=== PATIENT | female | born 1935 | race Caucasian/White ===

== ENCOUNTER 2016-08-12 17:12 | Inpatient (IN) ==
[2016-08-12] MEDS ORDERED: Naloxone 0.4 MG/ML INJ IVP PRN (19:50)
[2016-08-12] MEDS ORDERED: Dextrose Gel 15 GM PO PRN ×2 (19:57)
[2016-08-12] MEDS ORDERED: *HR* Dextrose 50 % in Water (Syg) 50 ML SYRINGE IVP PRN (19:57)
[2016-08-12] MEDS ORDERED: D5% in Water 1,000 ML IVC PRN (19:57)
--- NOTE | 2016-08-12 20:05 | Internal Med History&Physical ---
<Opal Garcia - Last Filed: 08/13/16 00:35> Date of Encounter: 08/12/16 Time of Encounter: 19:59 Assessment and Plan (1) Ascites Current visit: No Status: Acute due to cirrhosis. Patient with increasing swelling, increased weight, early satiety, nausea, difficulty walking due to swelling in her legs. continue home doses of lasix and amiloride. Low sodium diet. Albumin Q6hr x 24hr. Plan for paracentesis. Follow up with Dr. Sharma as an outpatient. Qualifiers: Ascites type: other type Qualified Code(s): R18.8 - Other ascites (2) DM2 (diabetes mellitus, type 2) Current visit: No Status: Acute check Hgb A1c Cardiac, ADA diet Check blood sugars ACHS Levemir 14u HS Sliding scale ACHS hypoglycemic protocol. Qualifiers: Diabetes mellitus complication status: with kidney complications Diabetes mellitus complication detail: with chronic kidney disease Diabetes mellitus fpc insulin use: without fpc use Chronic kidney disease stage: stage 3 (moderate) Qualified Code(s): E11.22 - Type 2 diabetes mellitus with diabetic chronic kidney disease; N18.3 - Chronic kidney disease, stage 3 ( moderate) (3) PEREZ (nonalcoholic steatohepatitis) Current visit: No Status: Acute Patient with PEREZ cirrhosis, with significant ascites. Plan for paracentesis to relieve ascites. Follow up with Dr. Sharma as an outpatient. (4) DVT prophylaxis Current visit: No Status: Acute anti-embolic stockings Internal Medicine - H&P: HPI Chief complaint: ascites Admitted From: Hospital to Hospital Transfer Plans for Post Hospital Care: Home History of present illness: Ms. Diego is a 81 year old female with hypertension, hyperlipidemia, atrial fibrillation, asthma, type 2 diabetes, cirrhosis presented to [facility] emergency department with increased swelling in lower extremities as well as abdomen. Patient reports she is unable to walk due to the significant swelling. She has gained 10 pounds in weight over the last week or so. She has generalized weakness, headache, cough, nausea, early satiety. She denies any lightheadedness, palpitations, chest pain, fever, chills, sweats, body aches. Evaluation in the emergency department at [facility] included a CT of her abdomen which showed large amount of ascites which is increased in amount since 08/01/2016, severe cirrhotic changes of the liver, small varices in the upper abdomen, severe sigmoid diverticulosis without evidence diverticulitis. LFTs were elevated consistent with her disease. She was transferred to [facility] for paracentesis and further management. ON exam, patient is alert and oriented in no acute distress. Lungs are clear bilaterally, heart has regular rate and rhythm. Abdomen is distended, diffusely tender. Bilateral lower extremities have +[address] up her thighs. Past Med Surg Social Fam HX - Past Medical History Medical history: asthma, cirrhosis, DVT, diabetes, GERD, hyperlipidemia, hypertension, renal disease, other Psychiatric history: anxiety - Past Surgical History Surgical History: breast surgery, cholecystectomy, hysterectomy, orthopedic, other, pacemaker/AICD, other - Social History Smoking Status: Former smoker Smokeless Tobacco Status: No Alcohol use: none Drug use: none - Family History Mother Living Status: Hx Family Cardiac Disorders: No Hx Family Respiratory Disorders: Yes Hx Family Cancer: Yes (ovarian) Hx Family GI Disorders: Yes Hx Family Endocrine Disorder: Yes Hx Family Neuromuscular Disorders: No Hx Family Neurologic Disorders: No Hx Family HEENT Disorders: No Hx Family Autoimmune Disorders: No Father Living Status: Hx Family Cardiac Disorders: Yes (htn, cad) Hx Family Endocrine Disorder: Yes (dm) Brother Hx Family Cardiac Disorders: Yes (htn) Hx Family Cancer: Yes (lung) Sister Living Status: Hx Family Cardiac Disorders: Yes (htn) Hx Family Cancer: Yes (breast) Hx Family Endocrine Disorder: Yes (dm) Paternal Grandmother Hx Family Cancer: Yes (breast) Daughter Hx Family Respiratory Disorders: Yes (copd) Son Hx Family Cardiac Disorders: Yes (chf) Hx Family Neuromuscular Disorders: Yes (gout) Internal Medicine - H&P: Meds Aspirin 325 mg PO DAILY 11/03/14 [History] Atorvastatin [Lipitor] 40 mg PO DAILY 11/03/14 [History] Furosemide [Lasix] 80 mg PO BID 11/03/14 [History] Levothyroxine [Synthroid] 75 mcg PO DAILY 11/03/14 [History] Loratadine [Claritin] 10 mg PO DAILY 11/03/14 [History] Metoprolol Tartrate 50 mg PO BID 11/03/14 [History] Rifaximin [Xifaxan] 550 mg PO BID 11/03/14 [History] Sertraline [Zoloft] 25 mg PO DAILY 11/03/14 [History] Cholecalciferol (Vitamin D3) [Vitamin D3] 50,000 unit PO SA 12/27/15 [History] cloNIDine HCl [CloNIDine HCl] 0.1 mg PO DAILY #30 tablet 12/31/15 [Rx] Insulin DETEMIR [Levemir] 28 unit SQ HS 03/05/16 [History] Insulin ASPART [NovoLOG] 10 unit SQ TIDWM 04/18/16 [History] aMILoride [Midamor] 5 mg PO BID 04/18/16 [History] Cholestyramine 2 - 4 gm PO BID 06/27/16 [History] Eplerenone [Inspra] 25 mg PO DAILY 08/12/16 [History] Spironolactone [Aldactone] 100 mg PO BID 08/12/16 [History] Ursodiol [Lo Forte] 500 mg PO BID 08/12/16 [History] Allergies apixaban [From Eliquis] Allergy (Verified 08/12/16 15:00) Redness of Skin Buspirone [From BuSpar] Allergy (Verified 08/12/16 15:00) Headache codeine Allergy (Verified 08/12/16 15:00) Headache lactulose Allergy (Verified 08/12/16 15:00) Itching rivaroxaban [From Xarelto] Allergy (Verified 08/12/16 15:00) Rash Sulfa (Sulfonamide Antibiotics) Allergy (Verified 08/12/16 15:00) Rash sulfamethoxazole Allergy (Verified 08/12/16 15:00) Headache Warfarin [From Coumadin] Allergy (Verified 08/12/16 15:00) Rash All Systems PM: A 10-system review of systems was performed and is negative for pertinent findings except as documented above in the HPI. - Constitutional Constitutional: weakness, no chills, no fever(s), no night sweats - EENT Eyes: no change in vision, no discharge, no pain, no photophobia Ears: no ear discharge, no ear pain, no tinnitus Nose, mouth and throat: no dysphagia, no nasal discharge, no neck pain, no sore throat - Cardiovascular Cardiovascular ROS IM: dyspnea, edema, no chest pain, no diaphoresis, no lightheadedness, no palpitations, no syncope - Respiratory Respiratory: cough, dyspnea, no wheezing, no excessive phlegm production - Gastrointestinal Gastrointestinal: abdominal pain, no diarrhea, no hematemesis, no hematochezia, no melena, no nausea, no vomiting - Genitourinary Genitourinary: no change in urinary stream, no dysuria, no flank pain, no hematuria - Musculoskeletal Musculoskeletal ROS IM: no numbness, no tingling - Integumentary Integumentary IM: no rash, no unusual bruising - Neurological Neurological ROS: no confusion, no convulsions, no focal weakness, no numbness, no tingling, no tremor(s) - Hematologic/Lymphatic Hematologic/Lymphatic: no easy bruising - Constitutional Vitals: Temp Pulse Resp BP Pulse Ox 98.2 F 72 14 119/77 99 08/12/16 19:28 08/12/16 19:28 08/12/16 19:28 08/12/16 19:28 08/12/16 19:28 General appearance: Present: A&O X 3, pleasant, no acute distress - Head Head exam: Present: atraumatic, normocephalic - Eye Eye exam: Present: PERRL, conjuntiva pink, sclera anicteric Pupils: Present: PERRL - Neck Neck exam general surgery: Present: supple, trachea midline. Absent: lymphadenopathy - Respiratory Respiratory exam: Present: CTAB. Absent: accessory muscle use, rales, rhonchi, wheezes - Cardiovascular Cardiovascular exam: Present: RRR, +S1, +S2. Absent: diastolic murmur, gallop, rubs, systolic murmur - GI/Abdominal GI/Abdominal exam: Present: distended, normal bowel sounds, soft, tenderness, no peritoneal signs - Extremities Exam Extremities exam: Present: pedal edema, warm, radial pulses palpable and symetrical. Absent: calf tenderness, cyanotic - Neurological Exam Neurological exam: Present: CN II-XII intact, oriented X3, no focal deficits. Absent: pronater drift, facial droop, speech deficit - Skin Skin exam: Present: dry, intact Internal Med - H&P Results - Labs Labs: Labs from [facility] ER: Hgb 12.3 Hct 36.7 WBC 10.4 Plt 130 Na 136 K 4.3 Cl 106 Co2 21 BUN 24 Cr 0.88 Glu 81 BNP 125 Tbili 1.9 Dbili 1.3 AST 403 ALT 329 Alk phos 192 <Floyd Montalvo - Last Filed: 08/13/16 00:46> Date of Encounter: 08/12/16 Internal Medicine - H&P: HPI History of present illness: Ms. Diego is a 81 year old female All Systems PM: A 10-system review of systems was performed and is negative for pertinent findings except as documented above in the HPI. - Constitutional Vitals: Temp Pulse Resp BP Pulse Ox 98.2 F 72 14 119/77 99 08/12/16 19:28 08/12/16 19:28 08/12/16 19:28 08/12/16 19:28 08/12/16 19:28 - Attending Attestation I personally interviewed and examined this patient and my medical decision- making was reviewed with the Advanced Practice Nurse. I agree with the documented findings, disposition and treatment plan as described. Pt with cirrhosis from PEREZ with no prior paracentesis comes in as a referral for symptomatic ascites but on exam pt looks comfortable, we will do a trial of IV albumin and reassess the need for paracentesis in AM. Should she still be comfortable then she will benefit from outpatient GI followup rather than inpatient paracentesis or GI consult.
[2016-08-12 20:36] LABS: Hemoglobin A1C 5.6 %
[2016-08-12] MEDS ORDERED: Insulin LISPRO 300 UNITS/3 ML VIAL SQ SCH (21:00)
[2016-08-12] MEDS ORDERED: Insulin DETEMIR 100 UNIT/ML X5UNITS SQ SCH (21:00)
[2016-08-13] MEDS: Albumin 25% 25gram/100mL 25 GM/100 ML IV.SOLN IVPB SCH ×6 (02:17→18:34)
[2016-08-13 05:40] LABS: Basophils # 0.1 K/mcL (0.0-0.2); Basophils % 0.6 %; Eosinophils # 0.5 K/mcL (0.0-0.6); Eosinophils % 5.2 %; Hematocrit 33.3 % (35.3-44.9); Immature Granulocytes % 0.3 % (0-4); Lymphocytes # 2.1 K/mcL (0.6-4.6); Lymphocytes % 23.9 %; Mean Corpuscular Hemoglobin 31.9 pg (28.0-33.3); Mean Corpuscular Volume 96.5 fL (83.0-100.0); Mean Platelet Volume 11.4 fL (9.4-12.4); Monocytes # 0.8 K/mcL (0.0-1.3); Monocytes % 9.2 %; Neutrophils # 5.3 K/mcL (1.6-8.9); Platelet Count 116 K/mcL (140-400); Red Blood Count 3.45 M/mcL (3.82-4.97); Red Cell Distribution Width 14.6 % (11.5-14.5); Segmented Neutrophils % 60.8 %
[2016-08-13 05:49] LABS: INR 1.7; Prothrombin Time 18.5 Seconds (9.4-12.1)
[2016-08-13 05:52] LABS: Activated Partial Thrombo Time 30.2 Seconds (26.0-36.0)
[2016-08-13 05:58] LABS: Alanine Aminotransferase 270 Units/L (0-55); Albumin 2.4 g/dL (3.5-5.0); Albumin/Globulin Ratio 0.7 (1.1-2.2); Alkaline Phosphatase 163 Units/L (38-126); Aspartate Amino Transferase 345 Units/L (5-34); BUN/Creatinine Ratio 30 (6-26); Bilirubin,Direct 1.3 mg/dL (0.0-0.5); Bilirubin,Indirect 0.9 mg/dL (0.0-1.2); Bilirubin,Total 2.2 mg/dL (0.2-1.2); Blood Urea Nitrogen 26 mg/dL (7-20); Calcium 8.6 mg/dL (8.6-10.8); Carbon Dioxide 24 mEq/L (19-29); Chloride 105 mEq/L (98-109); Globulin 3.3 g/dL (2.4-3.5); Glucose 78 mg/dL (70-99); Osmolality,Calculated 286 (280-300); Potassium 4.2 mEq/L (3.5-4.5); Sodium 136 mEq/L (136-145); Total Protein 5.7 g/dL (6.0-8.3); eGFR For African Americans > 60 (> 60); eGFR For Non-African Americans > 60 (> 60)
[2016-08-13] MEDS: Acetaminophen 325 MG TABLET PO PRN ×3 (06:11→20:56)
[2016-08-13] MEDS ORDERED: Insulin LISPRO 300 UNITS/3 ML VIAL SQ SCH ×3 (07:30)
[2016-08-13] MEDS ORDERED: *HR* Heparin 5,000 UNIT/ML VIAL SQ SCH (14:00)
[2016-08-13 15:12] LABS: RBC,Peritoneal Fluid < 0.002 M/mcL
[2016-08-13 15:13] LABS: Appearance of Peritoneal Fl CLEAR (Clear)
[2016-08-13 15:21] LABS: Amylase,Peritoneal Fluid 35 Units/L (No Ref Range); Glucose,Peritoneal Fluid 133 mg/dL (No Ref Range); LDH,Peritoneal Fluid 66 Units/L (No Ref Range)
[2016-08-13 15:26] LABS: Total Protein,Peritoneal Fluid < 0.8 g/dL (No Ref Range)
--- NOTE | 2016-08-13 16:27 | Internal Med Progress Note ---
Date of Encounter: 08/13/16 Time of Encounter: 10:00 - Assessment and plan (1) DM2 (diabetes mellitus, type 2) Current Visit: No Status: Acute Assessment and plan: cover patient with a sliding scale insulin Qualifiers: Diabetes mellitus complication status: with kidney complications Diabetes mellitus complication detail: with chronic kidney disease Diabetes mellitus alf insulin use: without media intern use Chronic kidney disease stage: stage 3 (moderate) Qualified Code(s): E11.22 - Type 2 diabetes mellitus with diabetic chronic kidney disease; N18.3 - Chronic kidney disease, stage 3 ( moderate) (2) Essential hypertension Current Visit: No Status: Acute Assessment and plan: stable, continue home medications (3) Acquired hypothyroidism Current Visit: No Status: Acute Assessment and plan: continue home medications Synthroid (4) PEREZ (nonalcoholic steatohepatitis) Current Visit: No Status: Acute Assessment and plan: gI consult. May need long-term follow-up (5) DVT prophylaxis Current Visit: No Status: Acute Assessment and plan: EPCD (6) Ascites Current Visit: No Status: Acute Assessment and plan: Had IR paracentesis today. Nucleared cells 180, not support SBP. continued diuretic treatment. Qualifiers: Ascites type: other type Qualified Code(s): R18.8 - Other ascites - Time Spent With Patient 25 - 35 minutes - Subjective Interval history: Patient is a 81-year-old female admitted for Ascites. her past medical history is significant for cirrhosis, DVT, diabetes, hyperlipidemia, hypertension, renal disease. Patient was seen and examined. Patient is still complaining of abd distention. IR paracentesis has been done. lab result not support SBP. We will consult GI for further management. - Constitutional Vitals: Temp Pulse Resp BP Pulse Ox 98.2 F 80 18 122/57 98 08/13/16 16:03 08/13/16 16:03 08/13/16 16:03 08/13/16 16:03 08/13/16 16:03 General appearance: Present: A&O X 3, pleasant, no acute distress - Head Head exam: Present: atraumatic, normocephalic - Eye Eye exam: Present: PERRL, conjuntiva pink, sclera anicteric Pupils: Present: PERRL - Neck Neck exam general surgery: Present: supple, trachea midline. Absent: lymphadenopathy - Respiratory Respiratory exam: Present: CTAB. Absent: accessory muscle use, rales, rhonchi, wheezes - Cardiovascular Cardiovascular exam: Present: RRR, +S1, +S2. Absent: diastolic murmur, gallop, rubs, systolic murmur - GI/Abdominal GI/Abdominal exam: Present: distended, normal bowel sounds, soft, no peritoneal signs. Absent: tenderness - Extremities Exam Extremities exam: Present: warm, radial pulses palpable and symetrical. Absent : calf tenderness, cyanotic, pedal edema - Neurological Exam Neurological exam: Present: CN II-XII intact, oriented X3, no focal deficits. Absent: pronater drift, facial droop, speech deficit - Skin Skin exam: Present: dry, intact Internal Medicine: Result - Labs CBC & Chem 7: 08/13/16 05:06 08/13/16 05:06 Labs: Short CBC 08/13/16 Range/Units 05:06 WBC 8.7 (4.3-11.1) K/mcL Hgb 11.0 L (11.5-15.4) g/dL Hct 33.3 L (35.3-44.9) % Plt Count 116 L (140-400) K/mcL Neutrophils # 5.3 (1.6-8.9) K/mcL BMP 08/13/16 05:06 Sodium 136 Potassium 4.2 Chloride 105 Carbon Dioxide 24 BUN 26 H Creatinine 0.88 Glucose 78 Calcium 8.6 Liver Function 08/13/16 Range/Units 05:06 Total Bilirubin 2.2 H (0.2-1.2) mg/dL Direct Bilirubin 1.3 H (0.0-0.5) mg/dL AST 345 H (5-34) Units/L ALT 270 H (0-55) Units/L Alkaline Phosphatase 163 H (38-126) Units/L Albumin 2.4 L (3.5-5.0) g/dL - ABG Interpretation ABG results: PT/INR, D-dimer PT 18.5 Seconds (9.4-12.1) H 08/13/16 05:06 - Impressions Impressions Paracentesis Ultrasound 08/13/16 11:04 IMPRESSION: Successful ultrasound guided paracentesis. D/ / Bang Navarro MD / Bang Navarro MD Interpreting Provider: Bang Navarro MD Consult Discharge Plan - Plan Referrals: Armida Torres MD [Primary Care Provider] -
[2016-08-13] MEDS ORDERED: D5% in Water 1,000 ML IVC PRN (16:35)
[2016-08-13] MEDS: aMILoride 5 MG TABLET PO SCH (20:56)
[2016-08-13] MEDS: Furosemide 40 MG TABLET PO SCH (20:57)
[2016-08-13] MEDS: Ursodiol [Urso Forte] 500 MG PO SCH (21:03)
[2016-08-14] MEDS: Insulin LISPRO 300 UNITS/3 ML VIAL SQ SCH ×5 (00:29→21:48)
[2016-08-14] MEDS ORDERED: *HR* Promethazine 25 MG/ML VIAL IVP ONE (05:14)
[2016-08-14 06:30] LABS: Hemoglobin 9.6 g/dL (11.5-15.4); Immature Granulocytes % 0.4 % (0-4); Mean Corpuscular Hemoglobin 32.1 pg (28.0-33.3); Red Blood Count 2.99 M/mcL (3.82-4.97); Red Cell Distribution Width 14.6 % (11.5-14.5)
[2016-08-14 06:31] LABS: Basophils % 0.3 %; Eosinophils # 0.2 K/mcL (0.0-0.6); Eosinophils % 2.8 %; Hematocrit 28.9 % (35.3-44.9); Immature Platelets 6.8 % (1.1-6.1); Lymphocytes # 1.3 K/mcL (0.6-4.6); Lymphocytes % 16.9 %; Mean Corpuscular HGB Conc 33.2 g/dL (31.6-35.5); Mean Corpuscular Volume 96.7 fL (83.0-100.0); Mean Platelet Volume 11.6 fL (9.4-12.4); Monocytes # 0.7 K/mcL (0.0-1.3); Monocytes % 8.7 %; Neutrophils # 5.3 K/mcL (1.6-8.9); Segmented Neutrophils % 70.9 %
[2016-08-14 06:33] LABS: Prothrombin Time 21.6 Seconds (9.4-12.1)
[2016-08-14 06:39] LABS: Platelet Count 79 K/mcL (140-400)
[2016-08-14 06:51] LABS: BUN/Creatinine Ratio 31 (6-26); Blood Urea Nitrogen 27 mg/dL (7-20); Calcium 8.4 mg/dL (8.6-10.8); Carbon Dioxide 24 mEq/L (19-29); Chloride 107 mEq/L (98-109); Glucose 104 mg/dL (70-99); Osmolality,Calculated 291 (280-300); Potassium 4.3 mEq/L (3.5-4.5); Sodium 138 mEq/L (136-145); eGFR For African Americans > 60 (> 60); eGFR For Non-African Americans > 60 (> 60)
[2016-08-14] MEDS: cloNIDine HCl 0.1 MG TABLET PO SCH (08:54)
[2016-08-14] MEDS: Furosemide 40 MG TABLET PO SCH ×2 (08:54→19:11)
[2016-08-14] MEDS: Aspirin 325 MG TABLET PO SCH (08:54)
[2016-08-14] MEDS: aMILoride 5 MG TABLET PO SCH (08:54)
[2016-08-14] MEDS: Ursodiol [Urso Forte] 500 MG PO SCH ×2 (08:55→22:20)
[2016-08-14] MEDS: Loratadine 10 MG TABLET PO SCH (08:55)
[2016-08-14] MEDS: Eplerenone [Inspra] 25 MG PO SCH (08:55)
[2016-08-14 09:34] LABS: Alanine Aminotransferase 216 Units/L (0-55); Albumin 2.9 g/dL (3.5-5.0); Albumin/Globulin Ratio 1.2 (1.1-2.2); Alkaline Phosphatase 142 Units/L (38-126); Aspartate Amino Transferase 289 Units/L (5-34); Bilirubin,Direct 0.9 mg/dL (0.0-0.5); Bilirubin,Indirect 1.2 mg/dL (0.0-1.2); Bilirubin,Total 2.1 mg/dL (0.2-1.2); Globulin 2.5 g/dL (2.4-3.5); Total Protein 5.4 g/dL (6.0-8.3)
--- NOTE | 2016-08-14 12:35 | Gastroenterology Consult Note ---
<Manjeet Price - Last Filed: 08/14/16 12:33> Date of Encounter: 08/14/16 Time of Encounter: 11:10 - Assessment and plan (1) Cirrhosis Current Visit: Yes Status: Acute Assessment and plan: MELD Na 18, ChildPugh class B, DF 39. Continue rifaximin. Recommend titrating lactulose for 2-4 bowel movements daily. Consider zinc supplement. Check AFP and RUQ US for HCC surveillance. Recommend referral to [facility] for possible liver transplant. Qualifiers: Hepatic cirrhosis type: unspecified hepatic cirrhosis Ascites presence: with ascites Qualified Code(s): K74.60 - Unspecified cirrhosis of liver (2) Ascites Current Visit: No Status: Acute Assessment and plan: Paracentesis completed yesterday with 55 mL removed. Negative for SBP. Change Amiloride to Aldactone as she was changed from Amiloride to Aldactone 100mg BID on 07/30/[address] Sharma. Continue Lasix. Qualifiers: Ascites type: other type Qualified Code(s): R18.8 - Other ascites - Time Spent With Patient Total time spent is greater than 50% in coordination of care (as documented) at patient's floor/unit and/or counseling patient: GI History of Present Illness - Data of Consult Patient: known to practice within the last 3 years Consult date: 08/14/16 Requesting Physician: Josep Nair MD - Consult Narrative Reason for consult: Cirrhosis History of present illness: Ms. Diego is a 81 year old female with PMHx of HTN, HLD, Afib, asthma, DM, cirrhosis, who presented to the ED at [facility] with increased swelling in lower extremities as well as abdomen. Patient reports she is unable to walk due to the significant swelling. She has gained 10 pounds in weight over the last week. She has generalized weakness, headache, cough, nausea, early satiety. She denies any lightheadedness, palpitations, chest pain, fever, chills, sweats, body aches. Evaluation in the emergency department at [facility] included a CT of her abdomen which showed large amount of ascites which is increased in amount since 08/01/2016, severe cirrhotic changes of the liver, small varices in the upper abdomen, severe sigmoid diverticulosis without evidence diverticulitis. Paracentesis completed yesterday, negative for SBP, and 55 mL removed. Procedures: EGD 06/27/2016 Dr. Sharma: With chronic gastritis, negative for H. pylori. NSAIDs: ASA Anticoagulation: None Past Med Surg Social Fam HX - Past Medical History Medical history: asthma, cirrhosis, CHF, DVT, diabetes, GERD, hyperlipidemia, hypertension, renal disease, thyroid disease, other Psychiatric history: anxiety - Past Surgical History Surgical History: breast surgery, cholecystectomy, hysterectomy, orthopedic, other, pacemaker/AICD, other - Social History Smoking Status: Former smoker Smokeless Tobacco Status: No Alcohol use: none Drug use: none - Family History Mother Living Status: Age at : 70 Cause of : cancer Hx Family Cardiac Disorders: No Hx Family Respiratory Disorders: Yes Hx Family Cancer: Yes (unknown) Hx Family GI Disorders: Yes Hx Family Endocrine Disorder: Yes Hx Family Neuromuscular Disorders: No Hx Family Neurologic Disorders: No Hx Family HEENT Disorders: No Hx Family Autoimmune Disorders: No Father Living Status: Age at : 70 Cause of : DM,Heart Hx Family Cardiac Disorders: Yes (unknown) Hx Family Endocrine Disorder: Yes (DM) Brother Hx Family Cardiac Disorders: Yes (htn) Hx Family Cancer: Yes (lung) Sister Living Status: Hx Family Cardiac Disorders: Yes (htn) Hx Family Cancer: Yes (breast) Hx Family Endocrine Disorder: Yes (dm) Paternal Grandmother Hx Family Cancer: Yes (breast) Daughter Hx Family Respiratory Disorders: Yes (copd) Son Hx Family Cardiac Disorders: Yes (chf) Hx Family Neuromuscular Disorders: Yes (gout) - Gastrointestinal Gastrointestinal: Present: as per HPI - Constitutional Constitutional: as per HPI - EENT Eyes: as per HPI Ears: Present: as per HPI Nose, mouth and throat: Present: as per HPI - Cardiovascular Cardiovascular ROS: Present: as per HPI - Respiratory Respiratory IM: Present: as per HPI - Genitourinary Genitourinary: Absent: change in color, Urinary frequency - Neurological ROS Neurological GI: Present: as per HPI - Hematologic/Lymphatic Hematologic/Lymphatic pediatric: Present: as per HPI - Musculoskeletal Musculoskeletal ROS GI: Present: as per HPI - Integumentary Integumentary GI: Present: as per HPI - Psychiatric ROS Psychiatric GI: Present: as per HPI - Endocrine Endocrine IM: Present: as per HPI - Constitutional Vitals: Temp Pulse Resp BP Pulse Ox 99.1 F 75 18 106/72 93 08/14/16 10:45 08/14/16 10:45 08/14/16 10:45 08/14/16 10:45 08/14/16 10:45 General appearance: Present: cooperative, no acute distress, answers questions appropriately Exam: Drowsy, oriented 3 - Head Head exam: Present: atraumatic, normocephalic - Eye Eye exam: Present: normal appearance, sclera anicteric - ENT ENT exam: Present: mucous membranes dry - Neck Neck exam general surgery: Present: normal inspection, trachea midline - Respiratory Respiratory exam: Present: decreased breath sounds, CTAB - Cardiovascular Cardiovascular exam: Present: RRR, +S1, +S2 - GI/Abdominal GI/Abdominal exam: Present: distended, firm, soft, no peritoneal signs. Absent : guarding, tenderness - Rectal Rectal exam: Present: deferred - Extremities Exam Extremities exam: Present: warm - Neurological Exam Neurological exam: Present: no focal deficits - Psychiatric Psychiatric exam: Present: normal affect, normal mood - Skin Skin exam: Present: dry, intact, normal color, warm Results - Labs CBC & Chem 7: 08/14/16 05:33 08/14/16 05:33 Labs: Last Result Calcium 8.4 mg/dL (8.6-10.8) L 08/14/16 05:33 Peritoneal Appearance CLEAR (Clear) 08/13/16 11:06 Peritoneal Volume 60.0 mL 08/13/16 11:06 Peritoneal pH 7.51 pH Units (No Ref Range) 08/13/16 11:06 Peritoneal RBC < 0.002 M/mcL (0.000-0.002) 08/13/16 11:06 Periton Tot Nuc Cells 181 TNC/mcL (0-300) 08/13/16 11:06 Periton Band Neuts Test Not Performed 08/13/16 11:06 Periton Lymphocytes % 66 % 08/13/16 11:06 Periton Monocytes % 7 % 08/13/16 11:06 Periton Other Cells % 12 % 08/13/16 11:06 Peritoneal Tot Protein < 0.8 g/dL (No Ref Range) 08/13/16 11:06 Peritoneal Albumin < 0.4 g/dL (No Ref Range) 08/13/16 11:06 Peritoneal LDH 66 Units/L (No Ref Range) 08/13/16 11:06 Peritoneal Glucose 133 mg/dL (No Ref Range) 08/13/16 11:06 Peritoneal Amylase 35 Units/L (No Ref Range) 08/13/16 11:06 Entire Visit Hgb 9.6 g/dL (11.5-15.4) L 08/14/16 05:33 Hct 28.9 % (35.3-44.9) L 08/14/16 05:33 PT 21.6 Seconds (9.4-12.1) H 08/14/16 05:33 Total Bilirubin 2.1 mg/dL (0.2-1.2) H 08/14/16 05:33 AST 289 Units/L (5-34) H 08/14/16 05:33 ALT 216 Units/L (0-55) H 08/14/16 05:33 - ABG ABG results: PT/INR, D-dimer PT 21.6 Seconds (9.4-12.1) H 08/14/16 05:33 - Impressions Impressions Paracentesis Ultrasound 08/13/16 11:04 IMPRESSION: Successful ultrasound guided paracentesis. D/ / Bang Navarro MD / Bang Navarro MD Interpreting Provider: Bang Navarro MD Consult Discharge Plan - Plan Referrals: Armida Trores MD [Primary Care Provider] - <Mimi Sharma - Last Filed: 08/14/16 18:24> Date of Encounter: 08/14/16 Time of Encounter: 17:00 - Time Spent With Patient Total time spent is greater than 50% in coordination of care (as documented) at patient's floor/unit and/or counseling patient: GI History of Present Illness - Data of Consult Requesting Physician: Josep Nair MD - Consult Narrative History of present illness: Ms. Diego is a 81 year old female - Constitutional Vitals: Temp Pulse Resp BP Pulse Ox 98.7 F 74 18 133/77 98 08/14/16 15:38 08/14/16 15:38 08/14/16 15:38 08/14/16 15:38 08/14/16 15:38 Results - Labs CBC & Chem 7: 05/24/17 05:33 08/14/16 05:33 Labs: Last Result Calcium 8.4 mg/dL (8.6-10.8) L 08/14/16 05:33 Peritoneal Appearance CLEAR (Clear) 08/13/16 11:06 Peritoneal Volume 60.0 mL 08/13/16 11:06 Peritoneal pH 7.51 pH Units (No Ref Range) 08/13/16 11:06 Peritoneal RBC < 0.002 M/mcL (0.000-0.002) 08/13/16 11:06 Periton Tot Nuc Cells 181 TNC/mcL (0-300) 08/13/16 11:06 Periton Band Neuts Test Not Performed 08/13/16 11:06 Periton Lymphocytes % 66 % 08/13/16 11:06 Periton Monocytes % 7 % 08/13/16 11:06 Periton Other Cells % 12 % 08/13/16 11:06 Peritoneal Tot Protein < 0.8 g/dL (No Ref Range) 08/13/16 11:06 Peritoneal Albumin < 0.4 g/dL (No Ref Range) 08/13/16 11:06 Peritoneal LDH 66 Units/L (No Ref Range) 08/13/16 11:06 Peritoneal Glucose 133 mg/dL (No Ref Range) 08/13/16 11:06 Peritoneal Amylase 35 Units/L (No Ref Range) 08/13/16 11:06 Entire Visit Hgb 9.6 g/dL (11.5-15.4) L 08/14/16 05:33 Hct 28.9 % (35.3-44.9) L 08/14/16 05:33 PT 21.6 Seconds (9.4-12.1) H 08/14/16 05:33 Total Bilirubin 2.1 mg/dL (0.2-1.2) H 08/14/16 05:33 AST 289 Units/L (5-34) H 08/14/16 05:33 ALT 216 Units/L (0-55) H 08/14/16 05:33 - ABG ABG results: PT/INR, D-dimer PT 21.6 Seconds (9.4-12.1) H 08/14/16 05:33 - Attending Attestation I examined this patient and my medical decision-making was reviewed with the TUMBLER MACHINE OPERATOR/PA/Advanced Practice Nurse/Resident Physician. I agree with the documented findings, disposition and treatment plan as described except to the extent set forth below. Pt with cirrhosis now with decompensation with ascites. Had a recent CAT scan done that showed a hepatic lesion suspicious for HCC. We will adjust her diuretic and could not tolerated Aldactone. [place] of age she will prob not a candidate for liver transplant
--- NOTE | 2016-08-14 15:33 | Internal Med Progress Note ---
Date of Encounter: 08/14/16 Time of Encounter: 10:00 - Assessment and plan (1) DM2 (diabetes mellitus, type 2) Current Visit: No Status: Acute Assessment and plan: cover patient with a sliding scale insulin Qualifiers: Diabetes mellitus complication status: with kidney complications Diabetes mellitus complication detail: with chronic kidney disease Diabetes mellitus longterm insulin use: without long term care pharmacist use Chronic kidney disease stage: stage 3 (moderate) Qualified Code(s): E11.22 - Type 2 diabetes mellitus with diabetic chronic kidney disease; N18.3 - Chronic kidney disease, stage 3 ( moderate) (2) Essential hypertension Current Visit: No Status: Acute Assessment and plan: stable, continue home medications (3) Acquired hypothyroidism Current Visit: No Status: Acute Assessment and plan: continue home medications Synthroid (4) PEREZ (nonalcoholic steatohepatitis) Current Visit: No Status: Acute Assessment and plan: gI consult. May need long-term follow-up (5) DVT prophylaxis Current Visit: No Status: Acute Assessment and plan: EPCD (6) Ascites Current Visit: No Status: Acute Assessment and plan: Had IR paracentesis today. Nucleared cells 180, not support SBP. continued diuretic treatment. Qualifiers: Ascites type: other type Qualified Code(s): R18.8 - Other ascites - Time Spent With Patient 25 - 35 minutes - Subjective Interval history: Patient is a 81-year-old female admitted for Ascites. her past medical history is significant for cirrhosis, DVT, diabetes, hyperlipidemia, hypertension, renal disease. Patient was seen and examined. Patient is still complaining of abd fullness. Shortness of breath was improved. Patient has bilateral wheezing, will add DuoNeb when necessary. Vitals are stable. GI consult appreciated. We will schedule GI follow-up as outpatient and referred to [facility] for evaluation of liver transplant - Constitutional Vitals: Temp Pulse Resp BP Pulse Ox 99.1 F 75 18 106/72 93 08/14/16 10:45 08/14/16 10:45 08/14/16 10:45 08/14/16 10:45 08/14/16 10:45 General appearance: Present: A&O X 3, pleasant, no acute distress - Head Head exam: Present: atraumatic, normocephalic - Eye Eye exam: Present: PERRL, conjuntiva pink, sclera anicteric Pupils: Present: PERRL - Neck Neck exam general surgery: Present: supple, trachea midline. Absent: lymphadenopathy - Respiratory Respiratory exam: Present: CTAB. Absent: accessory muscle use, rales, rhonchi, wheezes - Cardiovascular Cardiovascular exam: Present: RRR, +S1, +S2. Absent: diastolic murmur, gallop, rubs, systolic murmur - GI/Abdominal GI/Abdominal exam: Present: distended, normal bowel sounds, soft, no peritoneal signs. Absent: tenderness - Extremities Exam Extremities exam: Present: warm, radial pulses palpable and symetrical. Absent : calf tenderness, cyanotic, pedal edema - Neurological Exam Neurological exam: Present: CN II-XII intact, oriented X3, no focal deficits. Absent: pronater drift, facial droop, speech deficit - Skin Skin exam: Present: dry, intact Internal Medicine: Result - Labs CBC & Chem 7: 08/14/16 05:33 08/14/16 05:33 Labs: Short CBC 08/14/16 Range/Units 05:33 WBC 7.5 (4.3-11.1) K/mcL Hgb 9.6 L (11.5-15.4) g/dL Hct 28.9 L (35.3-44.9) % Plt Count 79 L (140-400) K/mcL Neutrophils # 5.3 (1.6-8.9) K/mcL BMP 08/14/16 05:33 Sodium 138 Potassium 4.3 Chloride 107 Carbon Dioxide 24 BUN 27 H Creatinine 0.88 Glucose 104 H Calcium 8.4 L Liver Function 08/14/16 Range/Units 05:33 Total Bilirubin 2.1 H (0.2-1.2) mg/dL Direct Bilirubin 0.9 H (0.0-0.5) mg/dL AST 289 H (5-34) Units/L ALT 216 H (0-55) Units/L Alkaline Phosphatase 142 H (38-126) Units/L Albumin 2.9 L D (3.5-5.0) g/dL - ABG Interpretation ABG results: PT/INR, D-dimer PT 21.6 Seconds (9.4-12.1) H 08/14/16 05:33 Consult Discharge Plan - Plan Referrals: Armida Torres MD [Primary Care Provider] -
--- NOTE | 2016-08-14 15:47 | ECHO - Doppler Report ---
Echocardiogram Name: Dorothea Diego Date of Study: 08/14/2016 Date: 1935 Ht: 62.0 in Medical Record#: [id number] Age: 81 Wt: 191.0 lb Gender: Female BSA: 1.87 Order #: [id number] Location: [facility] Room #: [id number] Reading Physician: Charmaine Kang DO Grinder Set Up Operator Universal: Alexia Yañez RVT, [facility] Ordering Physician: Josep Nair MD Primary Physician: Armida Ford MD Indications: Swelling Impressions: LVEF 65%. Normal left ventricular size and systolic function. There is evidence of mild diastolic dysfunction of the left ventricle. Normal right ventricular size and function in views visualized. No significant valvular dysfunction. Mild pulmonary hypertension. Reported history of pacemaker is suboptimally visualized. Left Ventricular Wall Motion: Rest Echo Findings All wall segments showed normal motion. Findings: Study Quality * Technically challenging due to poor echocardiographic windows. ECG Findings * Normal sinus rhythm. Left Ventricle * Mild left ventricular diastolic dysfunction. * LVEF 65%. * Normal LV chamber size, wall thickness and function. Aorta * Normally sized aortic root. Aortic Valve * No aortic regurgitation. * Aortic valve not well visualized. * No aortic stenosis. Mitral Valve * No mitral regurgitation. * Mild mitral annular calcification * No mitral stenosis. * Mildly thickened mitral valve leaflets. Tricuspid Valve * Tricuspid valve not well visualized. * Trace tricuspid regurgitation. * Estimated RA pressure is 3 mmHg. * Estimated RVSP is 40 mmHg. * Mild pulmonary hypertension. Pulmonic Valve * Pulmonic valve is not well visualized. * No pulmonic stenosis. * Trace pulmonic regurgitation. Pulmonary Artery * Pulmonary artery not well visualized. Interatrial Septum * Interatrial septum not well evaluated. Pericardium * There is no pericardial effusion present. IVC * Normal IVC dimensions and inspiratory collapse. Right Ventricle * RV size and function are normal in the PLAX and subcostal view. It is not well visualized in other views. Normal Lat S Dany. Left Atrium * Normal left atrial size. Right Atrium * Right atrium is not well visualized. History Hypertension Diabetes Hypercholesteremia Measurements: BP: 106/ 72 2D Normal Values RVIDd: 3.70 cm <2.7 cm IVSd: 1.10 cm 0.6 - 1.0 cm LVIDd: 3.10 cm 3.7 - 5.6 cm LVPWd: 1.10 cm 0.6 - 1.1 cm LVIDs: 2.40 cm 1.5 - 3.6 cm AO: 2.70 cm < 4.0 cm LA: 3.10 cm 2.0 - 4.0cm %FS: 22.60 cm >25 % LVOT Diam: 2.00 cm LA volume: 31 Mitral Valve Peak Velocity 1.58 m/sec Mean Velocity:.89 m/sec Peak Grad:10.00 mmHg Mean Grad:4.00 mmHg Pressure Time:91.00 msec Dec Time:299.00 msec Valve Area:2.42 cm2 Peak E:1.59 m/sec Peak A:1.12 m/sec E/A Ratio:1.4 Peak E' Lat Dany:7.02 cm/s Peak E' Med Dany:10.2 cm/s E/E' Lat Ratio:22.6 E/E' Med Ratio:15.6 Tricuspid Valve TV Regurg Peak Grad: 37.00mmHg TV Regurg Peak Dany: 3.03m/sec Updated by Charmaine Kang on 08/14/2016 3:38:37 PM electronically signed on 08/14/2016 3:41:08 PM with status of Final Wall Motion Lind: 1=Normal, 2=Hypokinesis, 3=Akinesis, 4=Dyskinesis, 5=Aneurysmal, 6=Hyperkinetic, X=Not Visualized (Blank)=Missing
[2016-08-14] MEDS: Ipratropium/Albuterol Neb 3 ML IH PRN (21:17)
[2016-08-15] MEDS ORDERED: Promethazine 12.5 MG in 0.9 % Sodium Chloride 50 ML IVPB ONE (03:09)
[2016-08-15] MEDS: Ipratropium/Albuterol Neb 3 ML IH PRN ×2 (03:53→21:48)
[2016-08-15 05:10] LABS: Hemoglobin 10.7 g/dL (11.5-15.4)
[2016-08-15 05:12] LABS: Basophils % 0.5 %; Eosinophils # 0.2 K/mcL (0.0-0.6); Eosinophils % 2.6 %; Hematocrit 33.1 % (35.3-44.9); Immature Granulocytes % 0.3 % (0-4); Immature Platelets 5.6 % (1.1-6.1); Lymphocytes # 1.2 K/mcL (0.6-4.6); Lymphocytes % 14.7 %; Mean Corpuscular HGB Conc 32.3 g/dL (31.6-35.5); Mean Corpuscular Hemoglobin 31.1 pg (28.0-33.3); Mean Corpuscular Volume 96.2 fL (83.0-100.0); Mean Platelet Volume 11.6 fL (9.4-12.4); Monocytes # 0.6 K/mcL (0.0-1.3); Monocytes % 8.1 %; Red Blood Count 3.44 M/mcL (3.82-4.97); Red Cell Distribution Width 14.6 % (11.5-14.5); Segmented Neutrophils % 73.8 %
[2016-08-15 05:13] LABS: INR 1.9; Prothrombin Time 20.6 Seconds (9.4-12.1)
[2016-08-15 05:15] LABS: Neutrophils # 5.8 K/mcL (1.6-8.9); Platelet Count 85 K/mcL (140-400)
[2016-08-15 05:30] LABS: BUN/Creatinine Ratio 32 (6-26); Blood Urea Nitrogen 29 mg/dL (7-20); Calcium 8.6 mg/dL (8.6-10.8); Carbon Dioxide 21 mEq/L (19-29); Chloride 106 mEq/L (98-109); Glucose 104 mg/dL (70-99); Osmolality,Calculated 290 (280-300); Potassium 4.4 mEq/L (3.5-4.5); Sodium 137 mEq/L (136-145); eGFR For African Americans > 60 (> 60); eGFR For Non-African Americans > 60 (> 60)
[2016-08-15] MEDS: Insulin LISPRO 300 UNITS/3 ML VIAL SQ SCH ×4 (08:43→21:48)
[2016-08-15] MEDS: Furosemide 40 MG TABLET PO SCH ×2 (10:51→17:10)
[2016-08-15] MEDS: Loratadine 10 MG TABLET PO SCH (10:53)
[2016-08-15] MEDS: Aspirin 325 MG TABLET PO SCH (10:53)
[2016-08-15] MEDS: cloNIDine HCl 0.1 MG TABLET PO SCH (10:53)
[2016-08-15] MEDS: Eplerenone [Inspra] 25 MG PO SCH (10:54)
[2016-08-15] MEDS: Ursodiol [Urso Forte] 500 MG PO SCH (10:54)
[2016-08-15] MEDS: Ibuprofen 400 MG TABLET PO PRN (11:07)
[2016-08-15 14:15] LABS: Bilirubin,Urine Small (Negative); Blood,Urine Large (Negative); Clarity,Urine Cloudy (Clear); Color,Urine Orange (Yellow); Glucose,Urine (UA) Normal (Normal); Ketones,Urine Negative (Negative); Leukocyte Esterase,Urine Large (Negative); Nitrite,Urine Negative (Negative); PH,Urine 5.5 pH Units (5.0-8.0); Protein,Urine Trace mg/dL (Neg-Trace); Specific Gravity,Urine 1.022 (1.010-1.025); Urobilinogen,Urine Normal (Normal)
[2016-08-15 14:18] LABS: Bacteria,Urine Many per hpf (None-Few); RBC,Urine 15-30 per hpf (0-3); Squamous Epithelial Cell,Urine Many per lpf (None-Few); WBC,Urine TNTC per hpf (0-3)
--- NOTE | 2016-08-15 16:52 | Internal Med Progress Note ---
Date of Encounter: 08/15/16 Time of Encounter: 09:00 - Assessment and plan (1) DM2 (diabetes mellitus, type 2) Current Visit: No Status: Acute Assessment and plan: cover patient with a sliding scale insulin Qualifiers: Diabetes mellitus complication status: with kidney complications Diabetes mellitus complication detail: with chronic kidney disease Diabetes mellitus mcc insulin use: without intermodal truck driver use Chronic kidney disease stage: stage 3 (moderate) Qualified Code(s): E11.22 - Type 2 diabetes mellitus with diabetic chronic kidney disease; N18.3 - Chronic kidney disease, stage 3 ( moderate) (2) Essential hypertension Current Visit: No Status: Acute Assessment and plan: stable, continue home medications (3) Acquired hypothyroidism Current Visit: No Status: Acute Assessment and plan: continue home medications Synthroid (4) PEREZ (nonalcoholic steatohepatitis) Current Visit: No Status: Acute Assessment and plan: gI consult. May need long-term follow-up (5) DVT prophylaxis Current Visit: No Status: Acute Assessment and plan: EPCD (6) Ascites Current Visit: No Status: Acute Assessment and plan: Had IR paracentesis. Nucleared cells 180, not c/w SBP. continued diuretic treatment. Qualifiers: Ascites type: other type Qualified Code(s): R18.8 - Other ascites (7) UTI (urinary tract infection) Current Visit: Yes Status: Acute Assessment and plan: Continue Rocephin. Patient has no symptoms except low fever Qualifiers: Urinary tract infection type: acute cystitis Hematuria presence: without hematuria Qualified Code(s): N30.00 - Acute cystitis without hematuria - Time Spent With Patient 25 - 35 minutes - Subjective Interval history: Patient is a 81-year-old female admitted for Ascites. her past medical history is significant for cirrhosis, DVT, diabetes, hyperlipidemia, hypertension, renal disease. Patient was seen and examined. Patient had low-grade fever last night. She complained mild cough with small amounts of sputum. Chest x-ray negative. Rapid strep test negative. Urinalysis shows UTI, will give patient Rocephin IV. Will also give patient cough syrup. Plan to discharge to [facility]CF if no further fever. - Constitutional Vitals: Temp Pulse Resp BP Pulse Ox 98.0 F 73 20 107/64 94 08/15/16 15:30 08/15/16 15:30 08/15/16 15:30 08/15/16 15:30 08/15/16 15:30 General appearance: Present: A&O X 3, pleasant, no acute distress - Head Head exam: Present: atraumatic, normocephalic - Eye Eye exam: Present: PERRL, conjuntiva pink, sclera anicteric Pupils: Present: PERRL - Neck Neck exam general surgery: Present: supple, trachea midline. Absent: lymphadenopathy - Respiratory Respiratory exam: Present: CTAB. Absent: accessory muscle use, rales, rhonchi, wheezes - Cardiovascular Cardiovascular exam: Present: RRR, +S1, +S2. Absent: diastolic murmur, gallop, rubs, systolic murmur - GI/Abdominal GI/Abdominal exam: Present: distended, normal bowel sounds, soft, no peritoneal signs. Absent: tenderness - Extremities Exam Extremities exam: Present: warm, radial pulses palpable and symetrical. Absent : calf tenderness, cyanotic, pedal edema - Neurological Exam Neurological exam: Present: CN II-XII intact, oriented X3, no focal deficits. Absent: pronater drift, facial droop, speech deficit - Skin Skin exam: Present: dry, intact Internal Medicine: Result - Labs CBC & Chem 7: 08/15/16 04:25 08/15/16 04:25 Labs: Short CBC 08/15/16 Range/Units 04:25 WBC 7.9 (4.3-11.1) K/mcL Hgb 10.7 L (11.5-15.4) g/dL Hct 33.1 L (35.3-44.9) % Plt Count 85 L (140-400) K/mcL Neutrophils # 5.8 (1.6-8.9) K/mcL BMP 08/15/16 04:25 Sodium 137 Potassium 4.4 Chloride 106 Carbon Dioxide 21 BUN 29 H Creatinine 0.90 Glucose 104 H Calcium 8.6 Urine 08/15/16 Range/Units 13:45 Urine Color [place] A (Yellow) Urine Clarity Cloudy A (Clear) Urine pH 5.5 (5.0-8.0) pH Units Ur Specific [place] 1.022 (1.010-1.025) Urine Protein Trace (Neg-Trace) mg/dL Urine Glucose (UA) Normal (Normal) mg/dL - ABG Interpretation ABG results: PT/INR, D-dimer PT 20.6 Seconds (9.4-12.1) H 08/15/16 04:25 - Impressions Impressions Liver Ultrasound 08/14/16 20:00 IMPRESSION: 1. Advanced liver cirrhosis. No evidence of a hepatic mass. 2. Small abdominal ascites. 3. Status post cholecystectomy. D/ / Perry Melissa MD / Perry Melissa MD Interpreting Provider: Perry Melissa MD Chest X-Ray 08/15/16 07:41 IMPRESSION: No suspicious infiltrate or gross consolidation. D/ / Maame Bradford MD / Maame Bradford MD Interpreting Provider: Maame Bradford MD - VTE Documentation of Mechanical Device: Intermittent pneumatic compression device Consult Discharge Plan - Plan Referrals: Armida Torres MD [Primary Care Provider] - 08/22/16 10:30 am
[2016-08-16] MEDS: Ibuprofen 400 MG TABLET PO PRN (05:22)
[2016-08-16 05:53] LABS: Basophils % 0.3 %; Hematocrit 30.1 % (35.3-44.9); Immature Granulocytes % 0.3 % (0-4); Mean Corpuscular Volume 98.4 fL (83.0-100.0); Mean Platelet Volume 12.7 fL (9.4-12.4); Red Blood Count 3.06 M/mcL (3.82-4.97)
[2016-08-16 05:55] LABS: Eosinophils # 0.2 K/mcL (0.0-0.6); Eosinophils % 3.2 %; Hemoglobin 9.5 g/dL (11.5-15.4); Immature Platelets 8.7 % (1.1-6.1); Lymphocytes # 1.2 K/mcL (0.6-4.6); Lymphocytes % 16.2 %; Mean Corpuscular HGB Conc 31.6 g/dL (31.6-35.5); Monocytes # 0.7 K/mcL (0.0-1.3); Monocytes % 9.6 %; Neutrophils # 5.2 K/mcL (1.6-8.9); Red Cell Distribution Width 15.3 % (11.5-14.5); Segmented Neutrophils % 70.4 %
[2016-08-16 05:57] LABS: INR 2.2; Prothrombin Time 24.8 Seconds (9.4-12.1)
[2016-08-16 06:17] LABS: Platelet Count 68 K/mcL (140-400)
[2016-08-16 06:48] LABS: BUN/Creatinine Ratio 35 (6-26); Blood Urea Nitrogen 30 mg/dL (7-20); Calcium 7.9 mg/dL (8.6-10.8); Carbon Dioxide 21 mEq/L (19-29); Chloride 106 mEq/L (98-109); Glucose 110 mg/dL (70-99); Osmolality,Calculated 285 (280-300); Potassium 3.8 mEq/L (3.5-4.5); Sodium 134 mEq/L (136-145); eGFR For African Americans > 60 (> 60); eGFR For Non-African Americans > 60 (> 60)
[2016-08-16] MEDS: Insulin LISPRO 300 UNITS/3 ML VIAL SQ SCH ×2 (08:04→12:40)
[2016-08-16] MEDS: cloNIDine HCl 0.1 MG TABLET PO SCH (08:14)
[2016-08-16] MEDS: Furosemide 40 MG TABLET PO SCH (08:14)
[2016-08-16] MEDS: Aspirin 325 MG TABLET PO SCH (08:14)
[2016-08-16] MEDS: Loratadine 10 MG TABLET PO SCH (08:14)
--- NOTE | 2016-08-16 11:46 | Gastroenterology Progress Note ---
<Manjeet Price - Last Filed: 08/16/16 11:43> Date of Encounter: 08/16/16 Time of Encounter: 10:30 - Assessment and plan (1) Cirrhosis Current Visit: Yes Status: Acute Assessment and plan: On admission, MELD Na 18, ChildPugh class B, DF 39. Continue Rifaximin. Recommend titrating lactulose for 2-4 bowel movements daily. Consider zinc supplement. CT A/P 08/01/2016 showed a hepatic lesion 2.4cm x 2.4cm suspicious for HCC. AFP 2 and RUQ US shows advanced cirrhosis, no hepatic mass seen. Will check MRI abdomen to r/o HCC. Recommend referral to [facility] for possible liver transplant. She may not be a candidate for transplant due to her age. Qualifiers: Hepatic cirrhosis type: unspecified hepatic cirrhosis Ascites presence: with ascites Qualified Code(s): K74.60 - Unspecified cirrhosis of liver (2) Ascites Current Visit: No Status: Acute Assessment and plan: Paracentesis completed with 55 mL removed. Negative for SBP. Continue Aldactone and Lasix. May need repeat paracentesis. Qualifiers: Ascites type: other type Qualified Code(s): R18.8 - Other ascites - Time Spent With Patient Total time spent is greater than 50% in coordination of care (as documented) at patient's floor/unit and/or counseling patient: - Subjective Interval history: Pt sitting in chair at bedside. She reports feeling much better. She states her abdomen is starting to feel full of fluid again. - Constitutional Vitals: Temp Pulse Resp BP Pulse Ox 98.5 F 74 16 107/57 94 08/16/16 11:00 08/16/16 11:00 08/16/16 11:00 08/16/16 07:05 08/16/16 11:00 General appearance: Present: cooperative, no acute distress, answers questions appropriately - Head Head exam: Present: atraumatic, normocephalic - Eye Eye exam: Present: normal appearance, sclera anicteric - ENT ENT exam: Present: mucous membranes moist - Neck Neck exam general surgery: Present: normal inspection, trachea midline - Respiratory Respiratory exam: Present: decreased breath sounds, CTAB - Cardiovascular Cardiovascular exam: Present: RRR, +S1, +S2 - GI/Abdominal GI/Abdominal exam: Present: distended, soft, no peritoneal signs. Absent: firm , guarding, tenderness - Rectal Rectal exam: Present: deferred - Extremities Exam Extremities exam: Present: warm - Neurological Exam Neurological exam: Present: no focal deficits - Psychiatric Psychiatric exam: Present: normal affect, normal mood - Skin Skin exam: Present: dry, intact, normal color, warm Results - Labs CBC & Chem 7: 08/16/16 05:20 08/16/16 06:06 Labs: Last Result Calcium 7.9 mg/dL (8.6-10.8) L 08/16/16 06:06 Peritoneal Appearance CLEAR (Clear) 08/13/16 11:06 Peritoneal Volume 60.0 mL 08/13/16 11:06 Peritoneal pH 7.51 pH Units (No Ref Range) 08/13/16 11:06 Peritoneal RBC < 0.002 M/mcL (0.000-0.002) 08/13/16 11:06 Periton Tot Nuc Cells 181 TNC/mcL (0-300) 08/13/16 11:06 Periton Band Neuts Test Not Performed 08/13/16 11:06 Periton Lymphocytes % 66 % 08/13/16 11:06 Periton Monocytes % 7 % 08/13/16 11:06 Periton Other Cells % 12 % 08/13/16 11:06 Peritoneal Tot Protein < 0.8 g/dL (No Ref Range) 08/13/16 11:06 Peritoneal Albumin < 0.4 g/dL (No Ref Range) 08/13/16 11:06 Peritoneal LDH 66 Units/L (No Ref Range) 08/13/16 11:06 Peritoneal Glucose 133 mg/dL (No Ref Range) 08/13/16 11:06 Peritoneal Amylase 35 Units/L (No Ref Range) 08/13/16 11:06 Entire Visit Hgb 9.5 g/dL (11.5-15.4) L 08/16/16 05:20 Hct 30.1 % (35.3-44.9) L 08/16/16 05:20 PT 24.8 Seconds (9.4-12.1) H 08/16/16 05:20 Total Bilirubin 2.1 mg/dL (0.2-1.2) H 08/14/16 05:33 AST 289 Units/L (5-34) H 08/14/16 05:33 ALT 216 Units/L (0-55) H 08/14/16 05:33 - ABG ABG results: PT/INR, D-dimer PT 24.8 Seconds (9.4-12.1) H 08/16/16 05:20 - VTE Documentation of Mechanical Device: Intermittent pneumatic compression device Consult Discharge Plan - Plan Referrals: Armida Torres MD [Primary Care Provider] - 08/22/16 10:30 am <Mimi Sharma - Last Filed: 08/16/16 12:04> Date of Encounter: 08/16/16 Time of Encounter: 12:00 - Time Spent With Patient Total time spent is greater than 50% in coordination of care (as documented) at patient's floor/unit and/or counseling patient: - Constitutional Vitals: Temp Pulse Resp BP Pulse Ox 98.5 F 74 16 107/57 94 08/16/16 11:00 08/16/16 11:00 08/16/16 11:00 08/16/16 07:05 08/16/16 11:00 Results - Labs CBC & Chem 7: 08/16/16 05:20 08/16/16 06:06 Labs: Last Result Calcium 7.9 mg/dL (8.6-10.8) L 08/16/16 06:06 Peritoneal Appearance CLEAR (Clear) 08/13/16 11:06 Peritoneal Volume 60.0 mL 08/13/16 11:06 Peritoneal pH 7.51 pH Units (No Ref Range) 08/13/16 11:06 Peritoneal RBC < 0.002 M/mcL (0.000-0.002) 08/13/16 11:06 Periton Tot Nuc Cells 181 TNC/mcL (0-300) 08/13/16 11:06 Periton Band Neuts Test Not Performed 08/13/16 11:06 Periton Lymphocytes % 66 % 08/13/16 11:06 Periton Monocytes % 7 % 08/13/16 11:06 Periton Other Cells % 12 % 08/13/16 11:06 Peritoneal Tot Protein < 0.8 g/dL (No Ref Range) 08/13/16 11:06 Peritoneal Albumin < 0.4 g/dL (No Ref Range) 08/13/16 11:06 Peritoneal LDH 66 Units/L (No Ref Range) 08/13/16 11:06 Peritoneal Glucose 133 mg/dL (No Ref Range) 08/13/16 11:06 Peritoneal Amylase 35 Units/L (No Ref Range) 08/13/16 11:06 Entire Visit Hgb 9.5 g/dL (11.5-15.4) L 08/16/16 05:20 Hct 30.1 % (35.3-44.9) L 08/16/16 05:20 PT 24.8 Seconds (9.4-12.1) H 08/16/16 05:20 Total Bilirubin 2.1 mg/dL (0.2-1.2) H 08/14/16 05:33 AST 289 Units/L (5-34) H 08/14/16 05:33 ALT 216 Units/L (0-55) H 08/14/16 05:33 - ABG ABG results: PT/INR, D-dimer PT 24.8 Seconds (9.4-12.1) H 08/16/16 05:20 - Attending Attestation I examined this patient and my medical decision-making was reviewed with the TOY PAINTER/PA/Advanced Practice Nurse/Resident Physician. I agree with the documented findings, disposition and treatment plan as described except to the extent set forth below. Continue Lasix and Aldactone follow with the GI as an outpatient
[2016-08-16 14:22] VITALS: BP 105/62
--- NOTE | 2016-08-16 15:24 | Discharge Summary ---
Date of Encounter: 08/16/16 Time of Encounter: 10:00 - Discharge Diagnosis (1) DM2 (diabetes mellitus, type 2) Priority: Secondary Status: Acute Qualifiers: Diabetes mellitus complication status: with kidney complications Diabetes mellitus complication detail: with chronic kidney disease Diabetes mellitus extermination inspector insulin use: without prison use Chronic kidney disease stage: stage 3 (moderate) Qualified Code(s): E11.22 - Type 2 diabetes mellitus with diabetic chronic kidney disease; N18.3 - Chronic kidney disease, stage 3 ( moderate) (2) Essential hypertension Priority: Secondary Status: Acute (3) Acquired hypothyroidism Priority: Secondary Status: Acute (4) PEREZ (nonalcoholic steatohepatitis) Priority: Primary Status: Acute (5) DVT prophylaxis Priority: Secondary Status: Acute (6) Ascites Priority: Primary Status: Acute Qualifiers: Ascites type: other type Qualified Code(s): R18.8 - Other ascites (7) UTI (urinary tract infection) Priority: Primary Status: Acute Qualifiers: Urinary tract infection type: acute cystitis Hematuria presence: without hematuria Qualified Code(s): N30.00 - Acute cystitis without hematuria - Discharge Medications Prescriptions: GuaiFENesin/Dextromethorphan [Robitussin/Dm] 10 ml PO Q6HR #200 ml Ipratropium/Albuterol Neb [Duoneb] 3 ml IH [id number] PRN #24 inhsol PRN Reason: Shortness Of Breath/Wheezing levoFLOXacin [Levaquin] 500 mg PO DAILY #7 tablet Spironolactone [Aldactone] 100 mg PO BID #30 tablet Home Medications: Aspirin 325 mg PO DAILY 11/03/14 [History] Atorvastatin [Lipitor] 40 mg PO DAILY 11/03/14 [History] Furosemide [Lasix] 80 mg PO BID 11/03/14 [History] Levothyroxine [Synthroid] 75 mcg PO DAILY 11/03/14 [History] Loratadine [Claritin] 10 mg PO DAILY 11/03/14 [History] Metoprolol Tartrate 50 mg PO BID 11/03/14 [History] Rifaximin [Xifaxan] 550 mg PO BID 11/03/14 [History] Sertraline [Zoloft] 25 mg PO DAILY 11/03/14 [History] Cholecalciferol (Vitamin D3) [Vitamin D3] 50,000 unit PO SA 12/27/15 [History] cloNIDine HCl [CloNIDine HCl] 0.1 mg PO DAILY #30 tablet 12/31/15 [Rx] Insulin DETEMIR [Levemir] 28 unit SQ HS 03/05/16 [History] Insulin ASPART [NovoLOG] 10 unit SQ TIDWM 04/18/16 [History] Cholestyramine 2 - 4 gm PO BID 06/27/16 [History] Ursodiol [Lo Forte] 500 mg PO BID 08/12/16 [History] GuaiFENesin/Dextromethorphan [Robitussin/Dm] 10 ml PO Q6HR #200 ml 08/16/16 [Rx] Ipratropium/Albuterol Neb [Duoneb] 3 ml IH [id number] PRN #24 inhsol 08/16/16 [Rx] Spironolactone [Aldactone] 100 mg PO BID #30 tablet 08/16/16 [Rx] levoFLOXacin [Levaquin] 500 mg PO DAILY #7 tablet 08/16/16 [Rx] Allergies/Adverse Reactions: Allergies apixaban [From Eliquis] Allergy (Verified 08/12/16 15:00) Redness of Skin Buspirone [From BuSpar] Allergy (Verified 08/12/16 15:00) Headache codeine Allergy (Verified 08/12/16 15:00) Headache lactulose Allergy (Verified 08/12/16 15:00) Itching rivaroxaban [From Xarelto] Allergy (Verified 08/12/16 15:00) Rash Sulfa (Sulfonamide Antibiotics) Allergy (Verified 08/12/16 15:00) Rash sulfamethoxazole Allergy (Verified 08/12/16 15:00) Headache Warfarin [From Coumadin] Allergy (Verified 08/12/16 15:00) Rash Procedures/tests Complete & Pending: Procedures Performed prior 72 hours Category Date Time Status US liver [US] Routine Exams 08/14/16 20:00 Completed MR abdomen w con [MR] Stat MRI 08/16/16 14:50 Stop Req EV echocardiogram Routine Y 08/14/16 10:00 Completed - Notes to Outpatient Provider Follow-up with GI as outpatient. Date of admission: 08/13/16 14:37 Primary care physician: Armida Torres, Consults: 08/13/16 10:44 Consult to Gastroenterology [CONS] Stat Consulting Provider: Gastroenterology Karly Reason for Consult: Ascites Call Completed: Yes Consult to Occupational Therapy [CONS] Stat Comment: Evaluate, develop and implement POC Reason for Consult: Dc planning Consult to Physical Therapy [CONS] Stat Comment: Evaluate, develop and implement POC Reason for Consult: DC planning 08/13/16 11:03 Consult to Interventional Radiology [CONS] Stat Consulting Provider: Radiology Interventional Cols Reason for Consult: Paracentesis Time Notified: 11:04 Call Completed: Yes 08/13/16 15:49 Consult to Manager Adult [CONS] Stat Reason for SW Consult: Placement Discharging clinician: Josep Nair Anticipated date of discharge: 08/16/16 - Patient Status Disposition: Transfer SNF Condition: Fair Overall status at discharge: patient is progressing back to baseline - Discharge Instructions Follow Up With: Armida Torres MD [Primary Care Provider] - 08/22/16 10:30 am Mimi Sharma MD [Partnered Physician] - 08/23/16 - Diet and Activity Activity: as per physical therapy Diet: diabetic diet Interval History: Ms. Diego is a 81 year old female with hypertension, hyperlipidemia, atrial fibrillation, asthma, type 2 diabetes, cirrhosis presented to [place] emergency department with increased swelling in lower extremities as well as abdomen. Patient reports she is unable to walk due to the significant swelling. She has gained 10 pounds in weight over the last week or so. She has generalized weakness, headache, cough, nausea, early satiety. She denies any lightheadedness, palpitations, chest pain, fever, chills, sweats, body aches. Evaluation in the emergency department at [place] included a CT of her abdomen which showed large amount of ascites which is increased in amount since 08/01/2016, severe cirrhotic changes of the liver, small varices in the upper abdomen, severe sigmoid diverticulosis without evidence diverticulitis. LFTs were elevated consistent with her disease. She was transferred to [facility] for paracentesis and further management. ON exam, patient is alert and oriented in no acute distress. Lungs are clear bilaterally, heart has regular rate and rhythm. Abdomen is distended, diffusely tender. Bilateral lower extremities have +[address] up her thighs. Hospital course: Ms. Diego is a 81 year old female admitted for ascites and liver cirrhosis. GI consult was called, patient was placed on diuretics. IR consult called and did bedside paracentesis. Peritoneal analysis shows no SBP. Pt has one episode of low fever, UA shows UTI, pt was treated with rocephin. Will switch to po levaquin upon discharge. After treatment, patient's condition has improved, abdominal distention and swelling has improved. GI consult recommended MRI to rule out HCC, however, patient has pacemaker and cannot do MRI. Her liver US and AFP negative to HCC, patient will continue closely follow up with GI as outpatient. I saw and examined the patient today. She is awake alert, still mild nonproductive cough. Vital signs stable. Will continue cough syrup and DuoNeb treatment as needed. Patient is stable to transfer to SNF. - Time Spent with Patient Total time spent providing and/or coordinating discharge services: 40 minutes Greater than 30 minutes - Constitutional Vitals: Temp Pulse Resp BP Pulse Ox 98.5 F 74 16 105/62 94 08/16/16 11:00 08/16/16 11:00 08/16/16 11:00 08/16/16 11:00 08/16/16 11:00 General appearance: Present: A&O X 3, pleasant, no acute distress - Head Head exam: Present: atraumatic, normocephalic - Eye Eye exam: Present: PERRL, conjuntiva pink, sclera anicteric Pupils: Present: PERRL - Neck Neck exam general surgery: Present: supple, trachea midline. Absent: lymphadenopathy - Respiratory Respiratory exam: Present: CTAB. Absent: accessory muscle use, rales, rhonchi, wheezes - Cardiovascular Cardiovascular exam: Present: RRR, +S1, +S2. Absent: diastolic murmur, gallop, rubs, systolic murmur - GI/Abdominal GI/Abdominal exam: Present: distended, normal bowel sounds, soft, no peritoneal signs. Absent: tenderness - Extremities Exam Extremities exam: Present: warm, radial pulses palpable and symetrical. Absent : calf tenderness, cyanotic, pedal edema - Neurological Exam Neurological exam: Present: CN II-XII intact, oriented X3, no focal deficits. Absent: pronater drift, facial droop, speech deficit - Skin Skin exam: Present: dry, intact - VTE Documentation of Mechanical Device: Intermittent pneumatic compression device
--- NOTE | 2016-08-16 15:38 | Physician Discharge Referral ---
ExtendedCare Referral Info Transfer To: ECF Provider in Charge after Transfer: Other - Diagnosis (1) DM2 (diabetes mellitus, type 2) Status: Acute (2) Essential hypertension Status: Acute (3) Acquired hypothyroidism Status: Acute (4) PEREZ (nonalcoholic steatohepatitis) Status: Acute (5) DVT prophylaxis Status: Acute (6) Ascites Status: Acute (7) UTI (urinary tract infection) Status: Acute - Transfer Medications Prescriptions: GuaiFENesin/Dextromethorphan [Robitussin/Dm] 10 ml PO Q6HR #200 ml Ipratropium/Albuterol Neb [Duoneb] 3 ml IH [id number] PRN #24 inhsol PRN Reason: Shortness Of Breath/Wheezing levoFLOXacin [Levaquin] 500 mg PO DAILY #7 tablet Spironolactone [Aldactone] 100 mg PO BID #30 tablet Home Medications: Aspirin 325 mg PO DAILY 11/03/14 [History] Atorvastatin [Lipitor] 40 mg PO DAILY 11/03/14 [History] Furosemide [Lasix] 80 mg PO BID 11/03/14 [History] Levothyroxine [Synthroid] 75 mcg PO DAILY 11/03/14 [History] Loratadine [Claritin] 10 mg PO DAILY 11/03/14 [History] Metoprolol Tartrate 50 mg PO BID 11/03/14 [History] Rifaximin [Xifaxan] 550 mg PO BID 11/03/14 [History] Sertraline [Zoloft] 25 mg PO DAILY 11/03/14 [History] Cholecalciferol (Vitamin D3) [Vitamin D3] 50,000 unit PO SA 12/27/15 [History] cloNIDine HCl [CloNIDine HCl] 0.1 mg PO DAILY #30 tablet 12/31/15 [Rx] Insulin DETEMIR [Levemir] 28 unit SQ HS 03/05/16 [History] Insulin ASPART [NovoLOG] 10 unit SQ TIDWM 04/18/16 [History] Cholestyramine 2 - 4 gm PO BID 06/27/16 [History] Ursodiol [Lo Forte] 500 mg PO BID 08/12/16 [History] GuaiFENesin/Dextromethorphan [Robitussin/Dm] 10 ml PO Q6HR #200 ml 08/16/16 [Rx] Ipratropium/Albuterol Neb [Duoneb] 3 ml IH [id number] PRN #24 inhsol 08/16/16 [Rx] Spironolactone [Aldactone] 100 mg PO BID #30 tablet 08/16/16 [Rx] levoFLOXacin [Levaquin] 500 mg PO DAILY #7 tablet 08/16/16 [Rx] Allergies/Adverse Reactions: Allergies apixaban [From Eliquis] Allergy (Verified 08/12/16 15:00) Redness of Skin Buspirone [From BuSpar] Allergy (Verified 08/12/16 15:00) Headache codeine Allergy (Verified 08/12/16 15:00) Headache lactulose Allergy (Verified 08/12/16 15:00) Itching rivaroxaban [From Xarelto] Allergy (Verified 08/12/16 15:00) Rash Sulfa (Sulfonamide Antibiotics) Allergy (Verified 08/12/16 15:00) Rash sulfamethoxazole Allergy (Verified 08/12/16 15:00) Headache Warfarin [From Coumadin] Allergy (Verified 08/12/16 15:00) Rash - Respiratory Orders Smoking Cessation: Smoking cessation has been advised. For more information, call the [place] Tobacco Quit Line at 3-222-IZUJ-NOW. - Advance Directives Code Status: Full Code - Rehabiliation Orders Rehab Potential: Fair Rehab Orders: Evaluation for Physical Therapy, Evaluation for Occupational Therapy - Diet Orders No Concentrated Sweets CERTIFICATION: I certify that the transfer of the above named patient to an Extended Care Facility is necessary for the continuing treatment of the diagnosis listed. The above information is true and accurate reflection of patient's current condition. Confidential - Redisclosure prohibited without a patient's written consent.
[2016-08-17] MEDS ORDERED: levoFLOXacin 500 MG TABLET PO SCH (09:00)
[2016-08-17] MEDS ORDERED: Cholecalciferol (D-3) 1,000 UNIT TABLET PO SCH (09:00)
== END 2016-08-16 16:50 | DRG 433 ==
LOC: 3ANU → SUATTDRO 18:53
PROVIDERS: ADMIT Internal Medicine Sleep Medicine; ATTEND Internal Medicine

== ENCOUNTER 2016-08-20 09:51 | Inpatient (IN) ==
[2016-08-20] MEDS ORDERED: Naloxone 0.4 MG/ML INJ IVP PRN (13:13)
[2016-08-20] MEDS ORDERED: Dextrose Gel 15 GM PO PRN ×2 (13:18)
[2016-08-20] MEDS ORDERED: *HR* Dextrose 50 % in Water (Syg) 50 ML SYRINGE IVP PRN (13:18)
[2016-08-20] MEDS ORDERED: D5% in Water 1,000 ML IVC PRN (13:18)
[2016-08-20] MEDS ORDERED: Acetaminophen 325 MG TABLET PO PRN (13:20)
--- NOTE | 2016-08-20 13:38 | Internal Med History&Physical ---
<Maureen Finney - Last Filed: 08/20/16 14:04> Date of Encounter: 08/20/16 Time of Encounter: 13:23 Assessment and Plan (1) Rectal bleeding Current visit: Yes Status: Acute 1 patient has been experiencing drops of bright red blood from rectum over the past week. Hemoglobin was 9.1 on08/16/2016 hemoglobin was 9.5. EGD was performed on 06/27/[address] Sharma which was normal. Patient is on aspirin for atrial fibrillation her platelets are 89. Patient has a history of hemorrhoids and has external hemorrhoids. Suspect this bleeding is related to hemorrhoids. We will continue to monitor hemoglobin. If hemoglobin continues to drop we will consult GI 2 we will hold aspirin for now (2) Ascites Current visit: Yes Status: Chronic 1 patient did have paracentesis last week she is scheduled for another paracentesis in 2 days. Patient is experiencing early CAD nausea and abdominal discomfort. May consider possible paracentesis prior to discharge 2 we will continue with Lasix/ spironolactone Qualifiers: Ascites type: other type Qualified Code(s): R18.8 - Other ascites (3) PEREZ (nonalcoholic steatohepatitis) Current visit: Yes Status: Acute 1 patient has history of cirrhosis meld score 20. She does see as outpatient and has a consult at [facility] on August 28. Patient will continue to follow-up with [facility] as outpatient. Consult GI as needed 2 we will continue with Aldactone and Lasix and Xifaxan 3 monitor intake and output daily (4) CKD (chronic kidney disease), stage II Current visit: Yes Status: Acute 1 presently creatinine 0.86. Appears to be stable at this time we will continue to monitor creatinine 2 avoid nephrotoxins 3 monitor intake and output daily weights (5) DM2 (diabetes mellitus, type 2) Current visit: No Status: Acute 1 Accu-Cheks before meals at bedtime with sliding scale insulin as well as basal Levemir 22 units daily at bedtime 2 diabetic diet Qualifiers: Diabetes mellitus complication status: with kidney complications Diabetes mellitus complication detail: with chronic kidney disease Diabetes mellitus intermediate insulin use: without intermediate use Chronic kidney disease stage: stage 3 (moderate) Qualified Code(s): E11.22 - Type 2 diabetes mellitus with diabetic chronic kidney disease; N18.3 - Chronic kidney disease, stage 3 ( moderate) (6) Thrombocytopenia Current visit: No Status: Chronic 1 presently platelets are a 9 which is up from previous which was 65 to to monitor 2. Aspirin for now due to recent rectal bleeding (7) DVT prophylaxis Current visit: No Status: Acute 1 we will use SCDs due to bleeding (8) Hypokalemia Current visit: Yes Status: Acute 1 presently potassium is 3.3 we will replace and recheck. Replace as needed Internal Medicine - H&P: HPI Chief complaint: rectal bleeding Admitted From: Hospital to Hospital Transfer Plans for Post Hospital Care: Transfer Halfway Facility History of present illness: Ms. Diego is a 81 year old female past medical history of atrial fibrillation and CHF diabetes GERD hyperlipidemia hypertension thyroid disease PEREZ CK D 2. Patient recent hospitalization last week for ascites, which she underwent a paracentesis. She was discharged to an [facility] for further strengthening. According to the patient last Friday she began to experience drops of blood in her attends undergarment. She denies any melena hematochezia however has had loose stools approximately 3 a day for the past few days. She denies any blood in her stool stool was occult positive in the emergency department. She does have abdominal pain which she states is chronic located around umbilicus. She also complains of nausea , early satiety as well as lightheadedness. She has had weight gain however she does not know how much. She does admit to history of hemorrhoids denies any use of anticoagulants she is on aspirin for her atrial fibrillation She was sent to the [place] ER for evaluation of rectal bleeding. According to ER records patient's hemoglobin was 9.1 it was 9.5 on 26 of this month, platelets are 89. Rest of lab work is unremarkable. She was sent to [facility] for further workup and evaluation. Presently patient denies any abdominal pain she does complain of some nausea. She does not appear to be in any respiratory distress she has any chest pain shortness of breath. Her lung sounds to have faint crackle in the bases heart sounds S1 and S2 with no rubs could ischialgia murmurs noted. She does have +2 pitting edema to lower extremities bilaterally abdomen is soft tender to palpation around umbilicus. Noted fluid wave. Upon evaluation the patient's rectum did note external hemorrhoids as well as some dried blood. No active bleeding noted at present she is hematologically stable. I reviewed this case with who agrees with plan. Past Med Surg Social Fam HX - Past Medical History Medical history: asthma, atrial fibrillation, cirrhosis, CHF, DVT, diabetes, GERD, hyperlipidemia, hypertension, liver disease, renal disease, thyroid disease, other Psychiatric history: anxiety - Past Surgical History Surgical History: breast surgery, cholecystectomy, hysterectomy, orthopedic, other, pacemaker/AICD, other - Social History Smoking Status: Former smoker Smokeless Tobacco Status: No Alcohol use: none Drug use: none - Family History Mother Living Status: Hx Family Cardiac Disorders: No Hx Family Respiratory Disorders: Yes Hx Family Cancer: Yes (unknown) Hx Family GI Disorders: Yes Hx Family Endocrine Disorder: Yes Hx Family Neuromuscular Disorders: No Hx Family Neurologic Disorders: No Hx Family HEENT Disorders: No Hx Family Autoimmune Disorders: No Father Living Status: Hx Family Cardiac Disorders: Yes (unknown) Hx Family Endocrine Disorder: Yes (DM) Brother Hx Family Cardiac Disorders: Yes (htn) Hx Family Cancer: Yes (lung) Sister Living Status: Hx Family Cardiac Disorders: Yes (htn) Hx Family Cancer: Yes (breast) Hx Family Endocrine Disorder: Yes (dm) Paternal Grandmother Hx Family Cancer: Yes (breast) Daughter Hx Family Respiratory Disorders: Yes (copd) Son Hx Family Cardiac Disorders: Yes (chf) Hx Family Neuromuscular Disorders: Yes (gout) Internal Medicine - H&P: Meds Aspirin 325 mg PO DAILY 11/03/14 [History] Atorvastatin [Lipitor] 40 mg PO DAILY 11/03/14 [History] Furosemide [Lasix] 80 mg PO BID 11/03/14 [History] Levothyroxine [Synthroid] 75 mcg PO DAILY 11/03/14 [History] Loratadine [Claritin] 10 mg PO DAILY 11/03/14 [History] Metoprolol Tartrate 50 mg PO BID 11/03/14 [History] Rifaximin [Xifaxan] 550 mg PO BID 11/03/14 [History] Sertraline [Zoloft] 25 mg PO DAILY 11/03/14 [History] Cholecalciferol (Vitamin D3) [Vitamin D3] 50,000 unit PO SA 12/27/15 [History] cloNIDine HCl [CloNIDine HCl] 0.1 mg PO DAILY #30 tablet 12/31/15 [Rx] Insulin DETEMIR [Levemir] 10 unit SQ HS 03/05/16 [History] Insulin ASPART [NovoLOG] 10 unit SQ TIDWM 04/18/16 [History] Cholestyramine 2 - 4 gm PO BID 06/27/16 [History] Ursodiol [Lo Forte] 500 mg PO BID 08/12/16 [History] Ipratropium/Albuterol Neb [Duoneb] 3 ml IH [id number] PRN #24 inhsol 08/16/16 [Rx] Spironolactone [Aldactone] 100 mg PO BID #30 tablet 08/16/16 [Rx] Eplerenone [Inspra] 25 mg PO DAILY 08/20/16 [History] GuaiFENesin/Dextromethorphan 10 ml PO Q6HR 08/20/16 [History] Levaquin 500 mg PO DAILY 08/20/16 [History] hydrOXYzine HCl [Hydroxyzine HCl] 25 mg PO Q5H PRN 08/20/16 [History] Allergies apixaban [From Eliquis] Allergy (Verified 08/12/16 15:00) Redness of Skin Buspirone [From BuSpar] Allergy (Verified 08/12/16 15:00) Headache codeine Allergy (Verified 08/12/16 15:00) Headache lactulose Allergy (Verified 08/12/16 15:00) Itching rivaroxaban [From Xarelto] Allergy (Verified 08/12/16 15:00) Rash Sulfa (Sulfonamide Antibiotics) Allergy (Verified 08/12/16 15:00) Rash sulfamethoxazole Allergy (Verified 08/12/16 15:00) Headache Warfarin [From Coumadin] Allergy (Verified 08/12/16 15:00) Rash All Systems PM: A 10-system review of systems was performed and is negative for pertinent findings except as documented above in the HPI. - Constitutional Constitutional: weight gain - Cardiovascular Cardiovascular ROS IM: no chest pain, no diaphoresis, no dyspnea, no lightheadedness, no palpitations, no syncope - Respiratory Respiratory: no cough, no dyspnea, no wheezing, no excessive phlegm production - Gastrointestinal Gastrointestinal: early satiety, nausea - Genitourinary Genitourinary: no change in urinary stream, no dysuria, no flank pain, no hematuria - Musculoskeletal Musculoskeletal ROS IM: no numbness, no tingling - Integumentary Integumentary IM: no rash, no unusual bruising - Neurological Neurological ROS: no confusion, no convulsions, no focal weakness, no numbness, no tingling, no tremor(s) - Constitutional Vitals: Temp Pulse Resp BP Pulse Ox 97.5 F L 66 16 123/79 99 08/20/16 12:24 08/20/16 12:24 08/20/16 12:24 08/20/16 12:24 08/20/16 12:24 General appearance: Present: A&O X 3, answers questions appropriately - Head Head exam: Present: atraumatic, normocephalic - Eye Eye exam: Present: PERRL, conjuntiva pink, sclera anicteric Pupils: Present: PERRL - Neck Neck exam general surgery: Present: supple, trachea midline. Absent: lymphadenopathy - Respiratory Respiratory exam: Present: rales. Absent: accessory muscle use, rhonchi, wheezes - Cardiovascular Cardiovascular exam: Present: RRR, +S1, +S2. Absent: diastolic murmur, gallop, rubs, systolic murmur - GI/Abdominal GI/Abdominal exam: Present: normal bowel sounds, soft, tenderness, no peritoneal signs. Absent: distended - Extremities Exam Extremities exam: Present: pedal edema, warm, radial pulses palpable and symetrical. Absent: calf tenderness, cyanotic - Neurological Exam Neurological exam: Present: CN II-XII intact, oriented X3, no focal deficits. Absent: pronater drift, facial droop, speech deficit - Skin Skin exam: Present: dry, intact Internal Med - H&P Results - Labs Labs: Laboratory per [facility] CBC WBC 5.0 hemoglobin 9.1 hematocrit 2.85 platelets 89 Chemistry sodium 139 potassium 3.3 chloride 107 bicarbonate 23 BUN 17 creatinine 0.86 glucose 71 GFR 60 PTT 29.8 INR 2.2 PTT 30.2 <Karol Abad - Last Filed: 08/20/16 18:46> Date of Encounter: 08/20/16 Internal Medicine - H&P: HPI History of present illness: Ms. Diego is a 81 year old female All Systems PM: A 10-system review of systems was performed and is negative for pertinent findings except as documented above in the HPI. - Constitutional Vitals: Temp Pulse Resp BP Pulse Ox 98.0 F 60 16 121/73 98 08/20/16 15:40 08/20/16 15:40 08/20/16 15:40 08/20/16 15:40 08/20/16 15:40 - Attending Attestation I examined this patient and my medical decision-making was reviewed with the Advanced Practice Nurse. I agree with the documented findings, disposition and treatment plan as described .
[2016-08-20] MEDS: Furosemide 40 MG TABLET PO SCH (16:16)
[2016-08-20] MEDS: Insulin LISPRO 300 UNITS/3 ML VIAL SQ SCH ×2 (16:24→20:58)
[2016-08-20] MEDS ORDERED: Insulin DETEMIR 100 UNIT/ML X5UNITS SQ SCH (21:00)
[2016-08-20] MEDS: Cholestyramine 4 GM POWD.PACK PO SCH (21:00)
[2016-08-20] MEDS: Insulin DETEMIR 100 UNIT/ML X5UNITS SQ SCH (21:27)
[2016-08-20] MEDS: Ipratropium/Albuterol Neb 3 ML IH PRN (21:34)
[2016-08-21 06:02] LABS: Immature Granulocytes % 0.4 % (0-4)
[2016-08-21 06:04] LABS: Basophils % 0.7 %; Eosinophils # 0.3 K/mcL (0.0-0.6); Eosinophils % 5.7 %; Hematocrit 26.8 % (35.3-44.9); Hemoglobin 8.6 g/dL (11.5-15.4); Immature Platelets 4.3 % (1.1-6.1); Lymphocytes # 1.7 K/mcL (0.6-4.6); Lymphocytes % 31.7 %; Mean Corpuscular HGB Conc 32.1 g/dL (31.6-35.5); Mean Corpuscular Hemoglobin 31.2 pg (28.0-33.3); Mean Corpuscular Volume 97.1 fL (83.0-100.0); Mean Platelet Volume 11.3 fL (9.4-12.4); Monocytes # 0.5 K/mcL (0.0-1.3); Neutrophils # 2.8 K/mcL (1.6-8.9); Platelet Count 102 K/mcL (140-400); Red Blood Count 2.76 M/mcL (3.82-4.97); Segmented Neutrophils % 51.5 %
[2016-08-21 06:15] LABS: BUN/Creatinine Ratio 19 (6-26); Blood Urea Nitrogen 15 mg/dL (7-20); Calcium 7.7 mg/dL (8.6-10.8); Carbon Dioxide 25 mEq/L (19-29); Chloride 107 mEq/L (98-109); Glucose 95 mg/dL (70-99); Osmolality,Calculated 287 (280-300); Potassium 3.3 mEq/L (3.5-4.5); Sodium 138 mEq/L (136-145); eGFR For African Americans > 60 (> 60); eGFR For Non-African Americans > 60 (> 60)
[2016-08-21] MEDS: Insulin LISPRO 300 UNITS/3 ML VIAL SQ SCH ×4 (07:55→21:04)
[2016-08-21] MEDS: Furosemide 40 MG TABLET PO SCH ×2 (09:12→16:48)
[2016-08-21] MEDS: Loratadine 10 MG TABLET PO SCH (09:13)
[2016-08-21] MEDS: Cholecalciferol (D-3) 1,000 UNIT TABLET PO SCH (09:13)
[2016-08-21] MEDS: levoFLOXacin 500 MG TABLET PO SCH (09:13)
[2016-08-21] MEDS: (Eplerenone [Inspra] 25 MG) PO SCH (09:15)
[2016-08-21] MEDS: Cholestyramine 4 GM POWD.PACK PO SCH ×2 (09:15→20:43)
[2016-08-21] MEDS ORDERED: Potassium Chloride Elixir 20 MEQ/15 ML UDC PO ONE (11:21)
--- NOTE | 2016-08-21 11:28 | Internal Med Progress Note ---
Date of Encounter: 08/21/16 Time of Encounter: 11:25 - Assessment and plan (1) Rectal bleeding Current Visit: Yes Status: Acute Assessment and plan: Patient reports at least one week history of painless bright red bleeding per rectum, could be hemorrhoidal versus diverticular versus angiodysplasia of colon. She is noted to have at least a 4 g drop in hemoglobin in the last 10- 12 days. She underwent EGD last month, which was normal. Case discussed with gastroenterology, plan for colonoscopy tomorrow. Clear liquid diet as tolerated with bowel prep tonight. Monitor hemoglobin closely. Hold aspirin for now. Pain control with when necessary oral oxycodone and IV morphine, when necessary antiemetics. (2) Ascites Current Visit: Yes Status: Chronic Assessment and plan: Patient has underlying nonalcoholic steatohepatitis and cirrhosis along with ascites and she recently underwent paracentesis. Continue diuretics. Qualifiers: Ascites type: other type Qualified Code(s): R18.8 - Other ascites (3) DM2 (diabetes mellitus, type 2) Current Visit: Yes Status: Chronic Assessment and plan: Accu-Chek blood glucose monitoring with sliding scale insulin. Qualifiers: Diabetes mellitus complication status: with kidney complications Diabetes mellitus complication detail: with chronic kidney disease Diabetes mellitus adjunct faculty for medical terminology insulin use: without adjunct faculty for medical terminology use Chronic kidney disease stage: stage 3 (moderate) Qualified Code(s): E11.22 - Type 2 diabetes mellitus with diabetic chronic kidney disease; N18.3 - Chronic kidney disease, stage 3 ( moderate) (4) Essential hypertension Current Visit: Yes Status: Chronic (5) Mixed hyperlipidemia Current Visit: Yes Status: Chronic (6) Acquired hypothyroidism Current Visit: Yes Status: Chronic Assessment and plan: Resume home dose of levothyroxine. (7) Chronic a-fib Current Visit: Yes Status: Chronic Assessment and plan: Telemetry monitoring, currently rate controlled. Patient is not noted to be on chronic anticoagulation and it is not indicated currently due to ongoing GI bleed. (8) GERD (gastroesophageal reflux disease) Current Visit: Yes Status: Chronic Assessment and plan: Continue PPI. Qualifiers: Esophagitis presence: esophagitis presence not specified Qualified Code(s) : K21.9 - Gastro-esophageal reflux disease without esophagitis (9) PEREZ (nonalcoholic steatohepatitis) Current Visit: Yes Status: Chronic Assessment and plan: Outpatient GI follow-up. Continue beta bria, rifaximin, diuretics and cholestyramine; (10) Anxiety Current Visit: Yes Status: Chronic (11) Depression Current Visit: Yes Status: Chronic Qualifiers: Depression Type: unspecified Qualified Code(s): F32.9 - Major depressive disorder, single episode, unspecified (12) CKD (chronic kidney disease) stage 3, GFR 30-59 ml/min Current Visit: Yes Status: Chronic - Subjective Interval history: Reports nausea but ate her breakfast today; no vomiting; does have chronic epigastric pain per her; has abdominal distension and leg swelling, which have been ongoing issues due to her cirrhosis. Also reports bright red bleeding per rectum, getting worse for the past week; - Constitutional Vitals: Temp Pulse Resp BP Pulse Ox 98.2 F 60 17 130/75 98 08/21/16 10:42 08/21/16 10:42 08/21/16 10:42 08/21/16 10:42 08/21/16 10:42 General appearance: Present: A&O X 3, obese, answers questions appropriately - Respiratory Respiratory exam: Present: CTAB. Absent: accessory muscle use, rales, rhonchi, wheezes - Cardiovascular Cardiovascular exam: Present: RRR, +S1, +S2. Absent: diastolic murmur, gallop, rubs, systolic murmur - GI/Abdominal GI/Abdominal exam: Present: distended (ascites+), normal bowel sounds, soft ( firm, nontender), no peritoneal signs. Absent: tenderness - Extremities Exam Extremities exam: Present: pedal edema (tense pitting pedal edema upto B/L hips) , warm, radial pulses palpable and symetrical. Absent: calf tenderness, cyanotic - Neurological Exam Neurological exam: Present: CN II-XII intact, oriented X3, no focal deficits. Absent: pronater drift, facial droop, speech deficit Internal Medicine: Result - Labs CBC & Chem 7: 08/21/16 04:32 08/21/16 04:32 Labs: Short CBC 08/21/16 Range/Units 04:32 WBC 5.4 (4.3-11.1) K/mcL Hgb 8.6 L (11.5-15.4) g/dL Hct 26.8 L (35.3-44.9) % Plt Count 102 L (140-400) K/mcL Neutrophils # 2.8 (1.6-8.9) K/mcL BMP 08/21/16 04:32 Sodium 138 Potassium 3.3 L Chloride 107 Carbon Dioxide 25 BUN 15 Creatinine 0.81 Glucose 95 Calcium 7.7 L - VTE Documentation of Mechanical Device: Intermittent pneumatic compression device Consult Discharge Plan - Plan Referrals: Armida Torres MD [Primary Care Provider] -
[2016-08-21] MEDS ORDERED: *HR* Morphine 2 MG/ML SYRINGE IVP PRN (12:35)
[2016-08-21] MEDS: Ondansetron 4 MG/2 ML VIAL IVP PRN (13:01)
[2016-08-21] MEDS ORDERED: SODIUM CHLORIDE/NAHCO3/KCL/PEG 4,000 ML SOLN.RECON PO ONE (17:00)
[2016-08-21 18:14] LABS: Basophils % 0.7 %; Eosinophils # 0.4 K/mcL (0.0-0.6); Eosinophils % 5.9 %; Hemoglobin 9.5 g/dL (11.5-15.4); Immature Granulocytes % 0.5 % (0-4); Lymphocytes # 1.7 K/mcL (0.6-4.6); Lymphocytes % 27.4 %; Mean Corpuscular HGB Conc 31.7 g/dL (31.6-35.5); Mean Platelet Volume 10.9 fL (9.4-12.4); Monocytes # 0.6 K/mcL (0.0-1.3); Monocytes % 9.4 %; Neutrophils # 3.4 K/mcL (1.6-8.9); Platelet Count 131 K/mcL (140-400); Red Blood Count 3.06 M/mcL (3.82-4.97); Red Cell Distribution Width 14.9 % (11.5-14.5); Segmented Neutrophils % 56.1 %
[2016-08-21] MEDS: *HR* OxyCODONE Immed Rel 5 MG TABLET PO PRN (19:14)
[2016-08-21] MEDS ORDERED: Polyethylene Glycol 3350 255 GM POWDER PO SCH (21:00)
[2016-08-21] MEDS: Insulin DETEMIR 100 UNIT/ML X5UNITS SQ SCH (21:04)
[2016-08-22 05:53] LABS: Basophils # 0.1 K/mcL (0.0-0.2); Basophils % 0.8 %; Eosinophils # 0.4 K/mcL (0.0-0.6); Eosinophils % 5.7 %; Hematocrit 29.2 % (35.3-44.9); Hemoglobin 9.1 g/dL (11.5-15.4); Immature Granulocytes % 0.5 % (0-4); Lymphocytes # 2.3 K/mcL (0.6-4.6); Lymphocytes % 29.6 %; Mean Corpuscular HGB Conc 31.2 g/dL (31.6-35.5); Mean Corpuscular Hemoglobin 30.7 pg (28.0-33.3); Mean Corpuscular Volume 98.6 fL (83.0-100.0); Mean Platelet Volume 10.8 fL (9.4-12.4); Monocytes # 0.9 K/mcL (0.0-1.3); Neutrophils # 4.1 K/mcL (1.6-8.9); Platelet Count 132 K/mcL (140-400); Red Blood Count 2.96 M/mcL (3.82-4.97); Red Cell Distribution Width 14.9 % (11.5-14.5); Segmented Neutrophils % 52.4 %
[2016-08-22 06:12] LABS: Alanine Aminotransferase 97 Units/L (0-55); Albumin 2.2 g/dL (3.5-5.0); Albumin/Globulin Ratio 0.7 (1.1-2.2); Alkaline Phosphatase 150 Units/L (38-126); Aspartate Amino Transferase 71 Units/L (5-34); BUN/Creatinine Ratio 16 (6-26); Bilirubin,Total 1.6 mg/dL (0.2-1.2); Blood Urea Nitrogen 14 mg/dL (7-20); Calcium 8.3 mg/dL (8.6-10.8); Carbon Dioxide 25 mEq/L (19-29); Chloride 105 mEq/L (98-109); Globulin 3.2 g/dL (2.4-3.5); Glucose 86 mg/dL (70-99); Osmolality,Calculated 282 (280-300); Potassium 3.8 mEq/L (3.5-4.5); Sodium 136 mEq/L (136-145); Total Protein 5.4 g/dL (6.0-8.3); eGFR For African Americans > 60 (> 60); eGFR For Non-African Americans > 60 (> 60)
[2016-08-22] MEDS: Insulin LISPRO 300 UNITS/3 ML VIAL SQ SCH ×4 (07:35→21:57)
[2016-08-22] MEDS: Furosemide 40 MG TABLET PO SCH ×2 (09:00→18:38)
[2016-08-22] MEDS: levoFLOXacin 500 MG TABLET PO SCH (09:00)
[2016-08-22] MEDS: Loratadine 10 MG TABLET PO SCH (09:01)
[2016-08-22] MEDS: (Eplerenone [Inspra] 25 MG) PO SCH (09:01)
[2016-08-22] MEDS: Cholestyramine 4 GM POWD.PACK PO SCH ×2 (09:01→21:57)
[2016-08-22] MEDS: Cholecalciferol (D-3) 1,000 UNIT TABLET PO SCH (09:02)
[2016-08-22 09:38] LABS: INR 1.9; Prothrombin Time 20.9 Seconds (9.4-12.1)
--- NOTE | 2016-08-22 10:17 | Internal Med Progress Note ---
Date of Encounter: 08/22/16 Time of Encounter: 10:16 - Assessment and plan (1) Rectal bleeding Current Visit: Yes Status: Acute Assessment and plan: Patient reports at least one week history of painless bright red bleeding per rectum, could be hemorrhoidal versus diverticular versus angiodysplasia of colon. Case discussed with gastroenterology, plan for colonoscopy today. Completed bowel prep. Nothing by mouth for now. Hemoglobin noted to be currently stable. Hold aspirin for now. Pain control with when necessary oral oxycodone and IV morphine, when necessary antiemetics. (2) Ascites Current Visit: Yes Status: Chronic Assessment and plan: Patient has underlying nonalcoholic steatohepatitis and cirrhosis along with ascites and she recently underwent paracentesis. Continue diuretics. Qualifiers: Ascites type: other type Qualified Code(s): R18.8 - Other ascites (3) DM2 (diabetes mellitus, type 2) Current Visit: Yes Status: Chronic Assessment and plan: Accu-Chek blood glucose monitoring with sliding scale insulin. Qualifiers: Diabetes mellitus complication status: with kidney complications Diabetes mellitus complication detail: with chronic kidney disease Diabetes mellitus jail insulin use: without solder technician use Chronic kidney disease stage: stage 3 (moderate) Qualified Code(s): E11.22 - Type 2 diabetes mellitus with diabetic chronic kidney disease; N18.3 - Chronic kidney disease, stage 3 ( moderate) (4) Essential hypertension Current Visit: Yes Status: Chronic (5) Mixed hyperlipidemia Current Visit: Yes Status: Chronic (6) Acquired hypothyroidism Current Visit: Yes Status: Chronic (7) Chronic a-fib Current Visit: Yes Status: Chronic Assessment and plan: Telemetry monitoring, currently rate controlled. Patient is not noted to be on chronic anticoagulation and it is not indicated currently due to ongoing GI bleed. (8) GERD (gastroesophageal reflux disease) Current Visit: Yes Status: Chronic Qualifiers: Esophagitis presence: esophagitis presence not specified Qualified Code(s) : K21.9 - Gastro-esophageal reflux disease without esophagitis (9) PEREZ (nonalcoholic steatohepatitis) Current Visit: Yes Status: Chronic Assessment and plan: Outpatient GI follow-up. Continue beta bria, rifaximin, diuretics and cholestyramine; (10) Anxiety Current Visit: Yes Status: Chronic (11) Depression Current Visit: Yes Status: Chronic Qualifiers: Depression Type: unspecified Qualified Code(s): F32.9 - Major depressive disorder, single episode, unspecified (12) CKD (chronic kidney disease) stage 3, GFR 30-59 ml/min Current Visit: Yes Status: Chronic - Subjective Interval history: Reports improved nausea and emesis since last night; awaiting colonoscopy today. Could not tolerate Nulytely but completed Miralax bowel prep; had bloody bowel movements with the prep; improved abdominal pain today. - Constitutional Vitals: Temp Pulse Resp BP Pulse Ox 98.6 F 72 18 118/61 98 08/22/16 06:47 08/22/16 06:47 08/22/16 06:47 08/22/16 06:47 08/22/16 06:47 General appearance: Present: A&O X 3, obese, answers questions appropriately - Respiratory Respiratory exam: Present: CTAB. Absent: accessory muscle use, rales, rhonchi, wheezes - Cardiovascular Cardiovascular exam: Present: RRR, +S1, +S2, systolic murmur. Absent: diastolic murmur, gallop, rubs - GI/Abdominal GI/Abdominal exam: Present: distended, normal bowel sounds, soft, no peritoneal signs. Absent: tenderness - Extremities Exam Extremities exam: Present: full ROM, pedal edema, warm, radial pulses palpable and symetrical. Absent: calf tenderness, cyanotic Internal Medicine: Result - Labs CBC & Chem 7: 08/22/16 05:37 08/22/16 05:37 Labs: Short CBC 08/21/16 08/22/16 Range/Units 17:43 05:37 WBC 6.1 7.7 (4.3-11.1) K/mcL Hgb 9.5 L 9.1 L (11.5-15.4) g/dL Hct 30.0 L 29.2 L (35.3-44.9) % Plt Count 131 L 132 L (140-400) K/mcL Neutrophils # 3.4 4.1 (1.6-8.9) K/mcL BMP 08/22/16 05:37 Sodium 136 Potassium 3.8 Chloride 105 Carbon Dioxide 25 BUN 14 Creatinine 0.88 Glucose 86 Calcium 8.3 L Liver Function 08/22/16 Range/Units 05:37 Total Bilirubin 1.6 H (0.2-1.2) mg/dL AST 71 H (5-34) Units/L ALT 97 H (0-55) Units/L Alkaline Phosphatase 150 H (38-126) Units/L Albumin 2.2 L (3.5-5.0) g/dL - ABG Interpretation ABG results: PT/INR, D-dimer PT 20.9 Seconds (9.4-12.1) H 08/22/16 08:50 - VTE Documentation of Mechanical Device: Venous foot pump, device Consult Discharge Plan - Plan Referrals: Armida Torres MD [Primary Care Provider] -
[2016-08-22] MEDS ORDERED: Lidocaine -MPF 2% 5 ML VIAL INFILT ONE (12:00)
[2016-08-22] MEDS ORDERED: *HR* Propofol 500 MG/50 ML BOTTLE IVC ONE (12:00)
[2016-08-22] MEDS: Ondansetron 4 MG/2 ML VIAL IVP PRN (12:04)
--- NOTE | 2016-08-22 12:08 | Gastroenterology Consult Note ---
<Manjeet Price - Last Filed: 08/22/16 12:06> Date of Encounter: 08/22/16 Time of Encounter: 10:30 - Assessment and plan (1) BRBPR (bright red blood per rectum) Status: Acute Assessment and plan: Could be due to hemorrhoids vs diverticular. Plan for colonoscopy today. Keep NPO. (2) Ascites Status: Chronic Assessment and plan: Continue Aldactone 100 mg BID. Consider paracentesis. Qualifiers: Ascites type: other type Qualified Code(s): R18.8 - Other ascites (3) Cirrhosis Status: Acute Assessment and plan: MELD Na 18, Child Lara class B-C, DF 49.4. Increase Rifaximin to 400 mg TID while inpatient, and change to 550 mg BID as outpatient. Recommend titrating lactulose for 2-4 bowel movements daily. Consider zinc supplement. AFP 2 on . RUQ US 08/14 with advanced cirrhosis, no mass seen. Pt is unable to complete MRI due to pacemaker. Qualifiers: Hepatic cirrhosis type: unspecified hepatic cirrhosis Ascites presence: with ascites Qualified Code(s): K74.60 - Unspecified cirrhosis of liver - Time Spent With Patient Total time spent is greater than 50% in coordination of care (as documented) at patient's floor/unit and/or counseling patient: GI History of Present Illness - Data of Consult Patient: known to practice within the last 3 years Consult date: 08/22/16 Requesting Physician: Miguelina Chin MD - Consult Narrative Reason for consult: BRBPR History of present illness: Ms. Diego is a 81 year old female with PMHx of HTN, HLD, Afib, CHF, asthma, DM , CKD, and cirrhosis who presented to the ED with rectal bleeding for the past week. Patient was recently hospitalized last week for ascites, which she underwent a paracentesis. Pt states BRBPR started last week, and has worsened over the past few days. She denies any melena. Fecal occult blood test was positive in the ED. She is having 2-3 BM daily. She denies fever, chills, confusion, chest pain, SOB, abdominal pain, nausea, vomiting. Hgb on 08/12 was 12.3 and dropped to a low of 8.6 on 08/21. Today, Hgb 9.1. Procedures: EGD 06/27/2016 Dr. Sharma: With chronic gastritis, negative for H. pylori. NSAIDs: ASA Anticoagulation: None Past Med Surg Social Fam HX - Past Medical History Medical history: asthma, atrial fibrillation, cirrhosis, CHF, DVT, diabetes, GERD, hyperlipidemia, hypertension, liver disease, renal disease, thyroid disease, other Psychiatric history: anxiety - Past Surgical History Surgical History: breast surgery, cholecystectomy, hysterectomy, orthopedic, other, pacemaker/AICD, other - Social History Smoking Status: Former smoker Smokeless Tobacco Status: No Alcohol use: none Drug use: none - Family History Mother Living Status: Hx Family Cardiac Disorders: No Hx Family Respiratory Disorders: Yes Hx Family Cancer: Yes (unknown) Hx Family GI Disorders: Yes Hx Family Endocrine Disorder: Yes Hx Family Neuromuscular Disorders: No Hx Family Neurologic Disorders: No Hx Family HEENT Disorders: No Hx Family Autoimmune Disorders: No Father Living Status: Hx Family Cardiac Disorders: Yes (unknown) Hx Family Endocrine Disorder: Yes (DM) Brother Hx Family Cardiac Disorders: Yes (htn) Hx Family Cancer: Yes (lung) Sister Living Status: Hx Family Cardiac Disorders: Yes (htn) Hx Family Cancer: Yes (breast) Hx Family Endocrine Disorder: Yes (dm) Paternal Grandmother Hx Family Cancer: Yes (breast) Daughter Hx Family Respiratory Disorders: Yes (copd) Son Hx Family Cardiac Disorders: Yes (chf) Hx Family Neuromuscular Disorders: Yes (gout) - Gastrointestinal Gastrointestinal: Present: as per HPI - Constitutional Constitutional: as per HPI - EENT Eyes: as per HPI Ears: Present: as per HPI Nose, mouth and throat: Present: as per HPI - Cardiovascular Cardiovascular ROS: Present: as per HPI - Genitourinary Genitourinary: Absent: change in color, Urinary frequency - Neurological ROS Neurological GI: Present: as per HPI - Hematologic/Lymphatic Hematologic/Lymphatic pediatric: Present: as per HPI - Musculoskeletal Musculoskeletal ROS GI: Present: as per HPI - Integumentary Integumentary GI: Present: as per HPI - Psychiatric ROS Psychiatric GI: Present: as per HPI - Endocrine Endocrine IM: Present: as per HPI - Constitutional Vitals: Temp Pulse Resp BP Pulse Ox 98.4 F 70 16 138/84 97 08/22/16 10:59 08/22/16 10:59 08/22/16 10:59 08/22/16 10:59 08/22/16 10:59 General appearance: Present: cooperative, A&O X 3, no acute distress, answers questions appropriately - Head Head exam: Present: atraumatic, normocephalic - Eye Eye exam: Present: normal appearance, sclera anicteric - ENT ENT exam: Present: mucous membranes dry - Neck Neck exam general surgery: Present: normal inspection, trachea midline - Respiratory Respiratory exam: Present: CTAB. Absent: rales, rhonchi - Cardiovascular Cardiovascular exam: Present: RRR, +S1, +S2 - GI/Abdominal GI/Abdominal exam: Present: distended, soft, no peritoneal signs. Absent: firm , guarding, tenderness - Expanded GI/Abdominal Exam GI/Abdominal exam expanded: Present: ascites - Rectal Rectal exam: Present: deferred - Extremities Exam Extremities exam: Present: warm - Neurological Exam Neurological exam: Present: no focal deficits - Psychiatric Psychiatric exam: Present: normal affect, normal mood - Skin Skin exam: Present: dry, intact, normal color, warm Results - Labs CBC & Chem 7: 08/22/16 05:37 08/22/16 05:37 Labs: Last Result Calcium 8.3 mg/dL (8.6-10.8) L 08/22/16 05:37 Entire Visit Hgb 9.1 g/dL (11.5-15.4) L 08/22/16 05:37 Hct 29.2 % (35.3-44.9) L 08/22/16 05:37 PT 20.9 Seconds (9.4-12.1) H 08/22/16 08:50 Total Bilirubin 1.6 mg/dL (0.2-1.2) H 08/22/16 05:37 AST 71 Units/L (5-34) H 08/22/16 05:37 ALT 97 Units/L (0-55) H 08/22/16 05:37 - ABG ABG results: PT/INR, D-dimer PT 20.9 Seconds (9.4-12.1) H 08/22/16 08:50 Consult Discharge Plan - Plan Instructions: Oxycodone, Rapid Release (By mouth), Hydrocortisone (Rectal), Colonoscopy (DC), Hemorrhoids (DC), Rectal Bleeding (DC), Heart Healthy Diet (DC ), Blood Transfusion (DC), Meal Planning with Diabetes Exchanges (DC), Anemia ( DC) Referrals: Armida Torres MD [Primary Care Provider] - Prescriptions: OxyCODONE Immed Rel [Roxicodone 5 MG] 5 mg PO Q6HR PRN #20 tablet PRN Reason: Pain Hydrocortisone Acetate [Anucort-Hc] 25 mg RC BID 10 Days <Mimi Sharma - Last Filed: 08/26/16 09:10> Date of Encounter: 08/22/16 - Time Spent With Patient Total time spent is greater than 50% in coordination of care (as documented) at patient's floor/unit and/or counseling patient: GI History of Present Illness - Data of Consult Requesting Physician: Miguelina Chin MD - Consult Narrative History of present illness: Ms. Diego is a 81 year old female - Constitutional Vitals: Temp Pulse Resp BP Pulse Ox 98.3 F 75 16 129/83 95 08/23/16 16:34 08/23/16 16:34 08/23/16 16:34 08/23/16 16:34 08/23/16 16:34 Results - Labs CBC & Chem 7: 08/23/16 04:45 08/22/16 05:37 Labs: Last Result Calcium 8.3 mg/dL (8.6-10.8) L 08/22/16 05:37 Entire Visit Hgb 7.8 g/dL (11.5-15.4) L 08/23/16 04:45 Hct 24.1 % (35.3-44.9) L 08/23/16 04:45 PT 20.9 Seconds (9.4-12.1) H 08/22/16 08:50 Total Bilirubin 1.6 mg/dL (0.2-1.2) H 08/22/16 05:37 AST 71 Units/L (5-34) H 08/22/16 05:37 ALT 97 Units/L (0-55) H 08/22/16 05:37 - ABG ABG results: PT/INR, D-dimer PT 20.9 Seconds (9.4-12.1) H 08/22/16 08:50 - Attending Attestation I examined this patient and my medical decision-making was reviewed with the [employer]/PA/Advanced Practice Nurse/Resident Physician. I agree with the documented findings, disposition and treatment plan as described except to the extent set forth below.
--- NOTE | 2016-08-22 14:11 | Anesthesia Evaluation PreOp ---
Date of Encounter: 08/22/16 Time of Encounter: 14:09 - Past History Planned Operation: Colonoscopy re: rectal bleeding Cardiac History: CHF, HTN (maintained on Metoprolol, Lasix, Clonidine, Eplerenone (Inspra)), Hyperlipidemia (maintained on Atorvastatin), Arrhythmia ( Paroxysmal AFib rate controlled on Metoprolol, anticoagulated on ASA), Other ( ECHO 08/14/2016 - LVEF = 65%. "REPORT OF PACEMAKER IS SUBOPTIMALLY VISUALIZED". 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 Thrombocytopenia) Anesthesia History: Past Anesthesia (Paracentesis, Breast surgery, Lala, Hyster , Pacer??, Orthopedic surgeries) Alcohol Use: none Drug use: none Medications and Allergies Aspirin 325 mg PO DAILY 11/03/14 [History] Atorvastatin [Lipitor] 40 mg PO DAILY 11/03/14 [History] Furosemide [Lasix] 80 mg PO BID 11/03/14 [History] Levothyroxine [Synthroid] 75 mcg PO DAILY 11/03/14 [History] Loratadine [Claritin] 10 mg PO DAILY 11/03/14 [History] Metoprolol Tartrate 50 mg PO BID 11/03/14 [History] Rifaximin [Xifaxan] 550 mg PO BID 11/03/14 [History] Sertraline [Zoloft] 25 mg PO DAILY 11/03/14 [History] Cholecalciferol (Vitamin D3) [Vitamin D3] 50,000 unit PO SA 12/27/15 [History] cloNIDine HCl [CloNIDine HCl] 0.1 mg PO DAILY #30 tablet 12/31/15 [Rx] Insulin DETEMIR [Levemir] 10 unit SQ HS 03/05/16 [History] Insulin ASPART [NovoLOG] 10 unit SQ TIDWM 04/18/16 [History] Cholestyramine 2 - 4 gm PO BID 06/27/16 [History] Ursodiol [Lo Forte] 500 mg PO BID 08/12/16 [History] Ipratropium/Albuterol Neb [Duoneb] 3 ml IH [id number] PRN #24 inhsol 08/16/16 [Rx] Spironolactone [Aldactone] 100 mg PO BID #30 tablet 08/16/16 [Rx] Eplerenone [Inspra] 25 mg PO DAILY 08/20/16 [History] GuaiFENesin/Dextromethorphan 10 ml PO Q6HR 08/20/16 [History] Levaquin 500 mg PO DAILY 08/20/16 [History] hydrOXYzine HCl [Hydroxyzine HCl] 25 mg PO Q5H PRN 08/20/16 [History] Allergies apixaban [From Eliquis] Allergy (Verified 08/12/16 15:00) Redness of Skin Buspirone [From BuSpar] Allergy (Verified 08/12/16 15:00) Headache codeine Allergy (Verified 08/12/16 15:00) Headache lactulose Allergy (Verified 08/12/16 15:00) Itching rivaroxaban [From Xarelto] Allergy (Verified 08/12/16 15:00) Rash Sulfa (Sulfonamide Antibiotics) Allergy (Verified 08/12/16 15:00) Rash sulfamethoxazole Allergy (Verified 08/12/16 15:00) Headache Warfarin [From Coumadin] Allergy (Verified 08/12/16 15:00) Rash - Meds/Allergy Pre-op Review Medications Reviewed: Yes Allergies Reviewed: Yes (Metoprolol) Beta Blockers on Current Med List: Yes If Beta Blockers taken, Date/Time (Last Dose taken): 08/22/2016 @ 0900 Anesthesia Results - Labs 08/22/16 05:37 08/22/16 05:37 Laboratory Results WBC 7.7 K/mcL (4.3-11.1) 08/22/16 05:37 RBC 2.96 M/mcL (3.82-4.97) L 08/22/16 05:37 Hgb 9.1 g/dL (11.5-15.4) L 08/22/16 05:37 Hct 29.2 % (35.3-44.9) L 08/22/16 05:37 MCV 98.6 fL (83.0-100.0) 08/22/16 05:37 MCH 30.7 pg (28.0-33.3) 08/22/16 05:37 MCHC 31.2 g/dL (31.6-35.5) L 08/22/16 05:37 RDW 14.9 % (11.5-14.5) H 08/22/16 05:37 Plt Count 132 K/mcL (140-400) L 08/22/16 05:37 MPV 10.8 fL (9.4-12.4) 08/22/16 05:37 Immature Gran % 0.5 % (0-4) 08/22/16 05:37 Seg Neutrophils % 52.4 % 08/22/16 05:37 Lymphocytes % 29.6 % 08/22/16 05:37 Monocytes % 11.0 % 08/22/16 05:37 Eosinophils % 5.7 % 08/22/16 05:37 Basophils % 0.8 % 08/22/16 05:37 Neutrophils # 4.1 K/mcL (1.6-8.9) 08/22/16 05:37 Lymphocytes # 2.3 K/mcL (0.6-4.6) 08/22/16 05:37 Monocytes # 0.9 K/mcL (0.0-1.3) 08/22/16 05:37 Eosinophils # 0.4 K/mcL (0.0-0.6) 08/22/16 05:37 Basophils # 0.1 K/mcL (0.0-0.2) 08/22/16 05:37 Immature Plt Fraction 4.3 % (1.1-6.1) 08/21/16 04:32 PT 20.9 Seconds (9.4-12.1) H 08/22/16 08:50 INR 1.9 08/22/16 08:50 Sodium 136 mEq/L (136-145) 08/22/16 05:37 Potassium 3.8 mEq/L (3.5-4.5) 08/22/16 05:37 Chloride 105 mEq/L (98-109) 08/22/16 05:37 Carbon Dioxide 25 mEq/L (19-29) 08/22/16 05:37 BUN 14 mg/dL (7-20) 08/22/16 05:37 Creatinine 0.88 mg/dL (0.57-1.11) 08/22/16 05:37 Est GFR ( Amer) > 60 (> 60) 08/22/16 05:37 Est GFR (Non-Af Amer) > 60 (> 60) 08/22/16 05:37 BUN/Creatinine Ratio 16 (6-26) 08/22/16 05:37 Glucose 86 mg/dL (70-99) 08/22/16 05:37 POC Glucose 89 (58-89) 08/22/16 05:16 Calculated Osmolality 282 (280-300) 08/22/16 05:37 Calcium 8.3 mg/dL (8.6-10.8) L 08/22/16 05:37 Total Bilirubin 1.6 mg/dL (0.2-1.2) H 08/22/16 05:37 AST 71 Units/L (5-34) H 08/22/16 05:37 ALT 97 Units/L (0-55) H 08/22/16 05:37 Alkaline Phosphatase 150 Units/L (38-126) H 08/22/16 05:37 Serum Total Protein 5.4 g/dL (6.0-8.3) L 08/22/16 05:37 Albumin 2.2 g/dL (3.5-5.0) L 08/22/16 05:37 Globulin 3.2 g/dL (2.4-3.5) 08/22/16 05:37 Albumin/Globulin Ratio 0.7 (1.1-2.2) L 08/22/16 05:37 - Imaging EKG: image reviewed Chest x-ray: report reviewed (08/15/2016 - Bibasilar atelectatic opacities. NO gross consolidation, pleural effusion or pneumothorax. Left Dual Lead pacmeaker) Anesthesia Exam Vital Signs Temp Pulse Resp BP Pulse Ox 08/22/16 14:02 71 18 129/71 98 08/22/16 10:59 98.4 F 70 16 138/84 97 08/22/16 06:47 98.6 F 72 18 118/61 98 08/22/16 03:07 98.6 F 66 15 128/77 96 08/21/16 22:30 98.2 F 72 17 112/62 97 08/21/16 18:51 98.0 F 60 18 131/84 100 Intake and Output 08/21/16 08/22/16 08/22/16 23:59 07:59 15:59 Intake Total 360 / 360 0 / 0 Output Total 900 / 900 650 / 650 Balance -540 / -540 -650 / -650 Intake: Oral 360 / 360 0 / 0 Output: Urine 100 / 100 0 / 0 Stool 250 / 250 Urine/Stool Mix 500 / 500 400 / 400 Other 300 / 300 Other: Meal npo Stool Consistency liquid Stool Color Yellow # Voids 1 1 Weight 86.818 kg Blood Glucose* 84 89 84 Patient Weight 08/22/16 23:59 Weight 86.818 kg Height: 5'2 Weight: 191# BMi = 35 NPO (# of Hours): MNOC Pain Scale Used: Numeric (1 - 10) - HEENT Mallampati: II Teeth: Normal Oral Opening: Less than or equal to 3 - SECURITY GUARD DISPATCHER SECURITY GUARD DISPATCHER Motor: Normal RUE, Normal LUE, Normal RLE, Normal LLE, Normal Face SECURITY GUARD DISPATCHER Sensory: Normal: RUE, LUE, RLE, LLE, Face - Cardiac Rhythm: Regular (No irregular rhythm ausculatated) Murmur: Systolic JVD: No - Pulmonary Breath Sounds: bilateral Clear Respiratory Effort: Symmetrical Anesthesia Assess/Plan ASA Score: 2 Modified V[place]aman Scale for Level of Consciousness: Cooperative, oriented, and tranquil Anesthetic Plan: MAC Autologous Blood: Yes Recovery Plan: Other Anes Supervising Prov Stmt: Pt seen/evaluated, R&B Discussed, questions answered and consent obtained. Charlie Monteiro MD
[2016-08-22] MEDS ORDERED: 0.9 % Sodium Chloride 1,000 ML IVC SCH (14:15)
--- NOTE | 2016-08-22 14:55 | Anesthesia Evaluation Post Op ---
Date of Encounter: 08/22/16 Time of Encounter: 14:54 - Vital Signs Vital Signs: Vital Signs/O2 Sat/Glucose, Most Current Temp Pulse Resp BP Pulse Ox 08/22/16 14:02 71 18 129/71 98 08/22/16 10:59 98.4 F 70 16 138/84 97 126/63, hr 70, spo2 99% - Lungs Lungs: Clear Ascult./Percussion - Airway Airway: Non-obstructed - Cardiovascular Regular Rate, Baseline Rhythm - Mental Status Mental Status: Alert & Oriented, Answers Appropriately - Pain Pain Scale: 0 Pain Scale used: Numeric (1 - 10) - Nausea Vomiting Nausea Vomiting: Not Present - Hydration Hydration: NPO, Has not voided - Discharge PostOp Status: Transfer Patient to floor
[2016-08-22] MEDS: Insulin DETEMIR 100 UNIT/ML X5UNITS SQ SCH (21:58)
[2016-08-22] MEDS: Ipratropium/Albuterol Neb 3 ML IH PRN (22:17)
[2016-08-23 05:24] LABS: Immature Granulocytes % 0.4 % (0-4); Mean Corpuscular Volume 98.4 fL (83.0-100.0)
[2016-08-23 05:27] LABS: Basophils % 0.7 %; Eosinophils # 0.2 K/mcL (0.0-0.6); Eosinophils % 4.2 %; Hematocrit 24.1 % (35.3-44.9); Hemoglobin 7.8 g/dL (11.5-15.4); Lymphocytes # 1.8 K/mcL (0.6-4.6); Mean Corpuscular HGB Conc 32.4 g/dL (31.6-35.5); Mean Corpuscular Hemoglobin 31.8 pg (28.0-33.3); Mean Platelet Volume 11.3 fL (9.4-12.4); Monocytes # 0.6 K/mcL (0.0-1.3); Monocytes % 10.5 %; Neutrophils # 2.8 K/mcL (1.6-8.9); Red Blood Count 2.45 M/mcL (3.82-4.97); Segmented Neutrophils % 51.2 %
[2016-08-23 05:37] LABS: Platelet Count 97 K/mcL (140-400)
[2016-08-23] MEDS: Insulin LISPRO 300 UNITS/3 ML VIAL SQ SCH ×2 (07:40→11:25)
[2016-08-23] MEDS: Loratadine 10 MG TABLET PO SCH (08:29)
[2016-08-23] MEDS: Cholecalciferol (D-3) 1,000 UNIT TABLET PO SCH (08:29)
[2016-08-23] MEDS: Cholestyramine 4 GM POWD.PACK PO SCH (08:29)
[2016-08-23] MEDS: Furosemide 40 MG TABLET PO SCH (08:29)
[2016-08-23] MEDS: levoFLOXacin 500 MG TABLET PO SCH (08:29)
[2016-08-23] MEDS: (Eplerenone [Inspra] 25 MG) PO SCH (08:30)
[2016-08-23] MEDS ORDERED: Hydrocortisone Acetate 25 MG RECTAL SUPPOSITORY RC SCH (09:00)
[2016-08-23] MEDS: Ondansetron 4 MG/2 ML VIAL IVP PRN (09:34)
[2016-08-23] MEDS: *HR* OxyCODONE Immed Rel 5 MG TABLET PO PRN (11:03)
--- NOTE | 2016-08-23 11:29 | Discharge Summary ---
Date of Encounter: 08/23/16 Time of Encounter: 11:23 - Discharge Diagnosis (1) Internal hemorrhoids Priority: Primary Status: Chronic (2) Rectal bleeding Priority: Primary Status: Acute (3) Ascites Priority: Secondary Status: Chronic Qualifiers: Ascites type: other type Qualified Code(s): R18.8 - Other ascites (4) DM2 (diabetes mellitus, type 2) Priority: Secondary Status: Chronic Qualifiers: Diabetes mellitus complication status: with kidney complications Diabetes mellitus complication detail: with chronic kidney disease Diabetes mellitus fci insulin use: without policy specialist use Chronic kidney disease stage: stage 3 (moderate) Qualified Code(s): E11.22 - Type 2 diabetes mellitus with diabetic chronic kidney disease; N18.3 - Chronic kidney disease, stage 3 ( moderate) (5) Essential hypertension Priority: Secondary Status: Chronic (6) Mixed hyperlipidemia Priority: Secondary Status: Chronic (7) Acquired hypothyroidism Priority: Secondary Status: Chronic (8) Chronic a-fib Priority: Secondary Status: Chronic (9) GERD (gastroesophageal reflux disease) Priority: Secondary Status: Chronic Qualifiers: Esophagitis presence: esophagitis presence not specified Qualified Code(s) : K21.9 - Gastro-esophageal reflux disease without esophagitis (10) PEREZ (nonalcoholic steatohepatitis) Priority: Secondary Status: Chronic (11) Anxiety Priority: Secondary Status: Chronic (12) Depression Priority: Secondary Status: Chronic Qualifiers: Depression Type: unspecified Qualified Code(s): F32.9 - Major depressive disorder, single episode, unspecified (13) CKD (chronic kidney disease) stage 3, GFR 30-59 ml/min Priority: Secondary Status: Chronic - Discharge Medications Prescriptions: OxyCODONE Immed Rel [Roxicodone 5 MG] 5 mg PO Q6HR PRN #20 tablet PRN Reason: Pain Hydrocortisone Acetate [Anucort-Hc] 25 mg RC BID 10 Days Home Medications: Aspirin 325 mg PO DAILY 11/03/14 [History] Atorvastatin [Lipitor] 40 mg PO DAILY 11/03/14 [History] Furosemide [Lasix] 80 mg PO BID 11/03/14 [History] Levothyroxine [Synthroid] 75 mcg PO DAILY 11/03/14 [History] Loratadine [Claritin] 10 mg PO DAILY 11/03/14 [History] Metoprolol Tartrate 50 mg PO BID 11/03/14 [History] Rifaximin [Xifaxan] 550 mg PO BID 11/03/14 [History] Sertraline [Zoloft] 25 mg PO DAILY 11/03/14 [History] Cholecalciferol (Vitamin D3) [Vitamin D3] 50,000 unit PO SA 12/27/15 [History] cloNIDine HCl [CloNIDine HCl] 0.1 mg PO DAILY #30 tablet 12/31/15 [Rx] Insulin DETEMIR [Levemir] 10 unit SQ HS 03/05/16 [History] Insulin ASPART [NovoLOG] 10 unit SQ TIDWM 04/18/16 [History] Cholestyramine 2 - 4 gm PO BID 06/27/16 [History] Ursodiol [Lo Forte] 500 mg PO BID 08/12/16 [History] Ipratropium/Albuterol Neb [Duoneb] 3 ml IH [id number] PRN #24 inhsol 08/16/16 [Rx] Spironolactone [Aldactone] 100 mg PO BID #30 tablet 08/16/16 [Rx] Eplerenone [Inspra] 25 mg PO DAILY 08/20/16 [History] GuaiFENesin/Dextromethorphan 10 ml PO Q6HR 08/20/16 [History] Levaquin 500 mg PO DAILY 08/20/16 [History] hydrOXYzine HCl [Hydroxyzine HCl] 25 mg PO Q5H PRN 08/20/16 [History] Hydrocortisone Acetate [Anucort-Hc] 25 mg RC BID 10 Days 08/23/16 [Rx] OxyCODONE Immed Rel [Roxicodone 5 MG] 5 mg PO Q6HR PRN #20 tablet 08/23/16 [Rx] Allergies/Adverse Reactions: Allergies apixaban [From Eliquis] Allergy (Verified 08/12/16 15:00) Redness of Skin Buspirone [From BuSpar] Allergy (Verified 08/12/16 15:00) Headache codeine Allergy (Verified 08/12/16 15:00) Headache lactulose Allergy (Verified 08/12/16 15:00) Itching rivaroxaban [From Xarelto] Allergy (Verified 08/12/16 15:00) Rash Sulfa (Sulfonamide Antibiotics) Allergy (Verified 08/12/16 15:00) Rash sulfamethoxazole Allergy (Verified 08/12/16 15:00) Headache Warfarin [From Coumadin] Allergy (Verified 08/12/16 15:00) Rash Date of admission: 08/22/16 16:01 Primary care physician: Armida Torres, Consults: 08/20/16 13:09 Consult to Pastoral Services [CONS] Routine Comment: 08/20/16 15:12 Consult to Executive Sales Manager [CONS] Routine Reason for SW Consult: was at [facility] in [place] for rehab; wants to go back 08/21/16 11:24 Consult to Gastroenterology [CONS] Routine Consulting Provider: Gastroenterlazara Brandt Reason for Consult: Lower GI bleed, BRBPR Call Completed: Yes Discharging clinician: Miguelina Chin Anticipated date of discharge: 08/23/16 - Patient Status Disposition: Transfer SNF Condition: Fair Functional capacity at discharge: uses cane/walker Overall status at discharge: patient is progressing back to baseline - Discharge Instructions Instructions: Oxycodone, Rapid Release (By mouth), Hydrocortisone (Rectal), Colonoscopy (DC), Hemorrhoids (DC), Rectal Bleeding (DC), Heart Healthy Diet (DC ), Blood Transfusion (DC), Meal Planning with Diabetes Exchanges (DC), Anemia ( DC) Follow Up With: Armida Torres MD [Primary Care Provider] - - Diet and Activity Activity: as per physical therapy Diet: diabetic diet, low fat, low cholesterol, low salt diet (fluid restriction to 1.2L/day) Hospital course: Ms. Diego is a 81 year old female with the above medical problems, [facility]. Patient was admitted with complaints of multiple episodes of bright red painless bleeding per rectum and she was noted to have a 4 g drop in hemoglobin compared to labs drawn about 10 days ago. She received 1 unit PRBC transfusion during this admission. Gastroenterology was consulted and patient underwent colonoscopy which showed internal hemorrhoids with dried blood, no evidence of active bleeding and no banding was done. She was started on Anusol suppository when necessary. She is currently medically stable for discharge with outpatient follow-up. - Time Spent with Patient Total time spent providing and/or coordinating discharge services: Greater than 30 minutes (45 min) - Constitutional Vitals: Temp Pulse Resp BP Pulse Ox 98.1 F 73 17 110/59 98 08/23/16 10:04 08/23/16 10:04 08/23/16 10:04 08/23/16 10:04 08/23/16 10:04 General appearance: Present: A&O X 3, obese, answers questions appropriately - Respiratory Respiratory exam: Present: CTAB. Absent: accessory muscle use, rales, rhonchi, wheezes - Cardiovascular Cardiovascular exam: Present: RRR, +S1, +S2. Absent: diastolic murmur, gallop, rubs, systolic murmur - VTE Documentation of Mechanical Device: Venous foot pump, device
[2016-08-23] MEDS ORDERED: Furosemide 20 MG/2 ML VIAL IVP ONE (11:30)
--- NOTE | 2016-08-23 11:32 | Physician Discharge Referral ---
ExtendedCare Referral Info Transfer To: [place] Provider in Charge: Miguelina Chin Provider in Charge after Transfer: PCP Institutional Level of Care: Intermediate - MR - Diagnosis (1) Internal hemorrhoids Priority: Primary Status: Chronic (2) Rectal bleeding Priority: Primary Status: Acute (3) Ascites Priority: Secondary Status: Chronic (4) DM2 (diabetes mellitus, type 2) Priority: Secondary Status: Chronic (5) Essential hypertension Priority: Secondary Status: Chronic (6) Mixed hyperlipidemia Priority: Secondary Status: Chronic (7) Acquired hypothyroidism Priority: Secondary Status: Chronic (8) Chronic a-fib Priority: Secondary Status: Chronic (9) GERD (gastroesophageal reflux disease) Priority: Secondary Status: Chronic (10) PEREZ (nonalcoholic steatohepatitis) Priority: Secondary Status: Chronic (11) Anxiety Priority: Secondary Status: Chronic (12) Depression Priority: Secondary Status: Chronic (13) CKD (chronic kidney disease) stage 3, GFR 30-59 ml/min Priority: Secondary Status: Chronic Expected Duration of Placement: 3 weeks Prognosis: Fair Aware of Diagnosis: Patient, Family Aware of Prognosis: Patient - Transfer Medications Prescriptions: OxyCODONE Immed Rel [Roxicodone 5 MG] 5 mg PO Q6HR PRN #20 tablet PRN Reason: Pain Hydrocortisone Acetate [Anucort-Hc] 25 mg RC BID 10 Days Home Medications: Aspirin 325 mg PO DAILY 11/03/14 [History] Atorvastatin [Lipitor] 40 mg PO DAILY 11/03/14 [History] Furosemide [Lasix] 80 mg PO BID 11/03/14 [History] Levothyroxine [Synthroid] 75 mcg PO DAILY 11/03/14 [History] Loratadine [Claritin] 10 mg PO DAILY 11/03/14 [History] Metoprolol Tartrate 50 mg PO BID 11/03/14 [History] Rifaximin [Xifaxan] 550 mg PO BID 11/03/14 [History] Sertraline [Zoloft] 25 mg PO DAILY 11/03/14 [History] Cholecalciferol (Vitamin D3) [Vitamin D3] 50,000 unit PO SA 12/27/15 [History] cloNIDine HCl [CloNIDine HCl] 0.1 mg PO DAILY #30 tablet 12/31/15 [Rx] Insulin DETEMIR [Levemir] 10 unit SQ HS 03/05/16 [History] Insulin ASPART [NovoLOG] 10 unit SQ TIDWM 04/18/16 [History] Cholestyramine 2 - 4 gm PO BID 06/27/16 [History] Ursodiol [Lo Forte] 500 mg PO BID 08/12/16 [History] Ipratropium/Albuterol Neb [Duoneb] 3 ml IH [id number] PRN #24 inhsol 08/16/16 [Rx] Spironolactone [Aldactone] 100 mg PO BID #30 tablet 08/16/16 [Rx] Eplerenone [Inspra] 25 mg PO DAILY 08/20/16 [History] GuaiFENesin/Dextromethorphan 10 ml PO Q6HR 08/20/16 [History] Levaquin 500 mg PO DAILY 08/20/16 [History] hydrOXYzine HCl [Hydroxyzine HCl] 25 mg PO Q5H PRN 08/20/16 [History] Hydrocortisone Acetate [Anucort-Hc] 25 mg RC BID 10 Days 08/23/16 [Rx] OxyCODONE Immed Rel [Roxicodone 5 MG] 5 mg PO Q6HR PRN #20 tablet 08/23/16 [Rx] Allergies/Adverse Reactions: Allergies apixaban [From Eliquis] Allergy (Verified 08/12/16 15:00) Redness of Skin Buspirone [From BuSpar] Allergy (Verified 08/12/16 15:00) Headache codeine Allergy (Verified 08/12/16 15:00) Headache lactulose Allergy (Verified 08/12/16 15:00) Itching rivaroxaban [From Xarelto] Allergy (Verified 08/12/16 15:00) Rash Sulfa (Sulfonamide Antibiotics) Allergy (Verified 08/12/16 15:00) Rash sulfamethoxazole Allergy (Verified 08/12/16 15:00) Headache Warfarin [From Coumadin] Allergy (Verified 08/12/16 15:00) Rash - Respiratory Orders Smoking Cessation: Smoking cessation has been advised. For more information, call the [place] Tobacco Quit Line at 7-689-XGDP-NOW. - Advance Directives Code Status: Full Code - Rehabiliation Orders Rehab Potential: Fair Rehab Orders: ROM Exercises, Evaluation for Physical Therapy, Evaluation for Occupational Therapy - Diet Orders No Added Salt (DIAMOND), No Concentrated Sweets (diabetic), Cardiac (fluid restriction to 1.2L/day) CERTIFICATION: I certify that the transfer of the above named patient to an Extended Care Facility is necessary for the continuing treatment of the diagnosis listed. The above information is true and accurate reflection of patient's current condition. Confidential - Redisclosure prohibited without a patient's written consent.
[2016-08-23] MEDS ORDERED: 0.9 % Sodium Chloride 250 ML ONE (12:59)
[2016-08-23 16:35] VITALS: BP 129/83
== END 2016-08-23 18:18 | DRG 394 ==
LOC: 3ANU → SUATTDRO 11:19
PROVIDERS: ADMIT Internal Medicine Endocrinology, Diabetes & Metabolism; ATTEND Internal Medicine

== ENCOUNTER 2016-10-29 16:06 | Observation (INO) ==
--- NOTE | 2016-10-29 16:23 | Emergency Department Note ---
Disposition Clinical Impression: Liver cirrhosis Qualifiers: Hepatic cirrhosis type: unspecified hepatic cirrhosis Ascites presence: with ascites Qualified Code(s): K74.60 - Unspecified cirrhosis of liver Ascites Qualifiers: Ascites type: other type Qualified Code(s): R18.8 - Other ascites Disposition: Admitted As Inpatient Condition: Good Referrals: Armida Torres MD [Primary Care Provider] - Forms: Work/School Release, ED Satisfaction Letter Time of Disposition: 16:56 General Adult HPI - General Chief complaint: ED General Medical Stated complaint: Here for admission for paracentesis Time Seen by Provider: 10/29/16 16:08 Source: patient, EMS Limitations: no limitations Nursing Notes Reviewed: Yes Vital Signs Reviewed: Yes - History of Present Illness HPI Narrative: 81 year old female transferred to us from Dr. Bangura office for admission for a paracentseis. Patient was seen in his office for routine followup lisa her cirrhotic liver disease and she appears to be fluid overloaded. Jennifernet states that she has increased pain and mild shortness of breath. Dat denies fevers or nausea or vomitting. Dat does not display any signs of sepsis at this time. Dat states the last time she had a paracentesis was a few months ago without complcations. Pain Scale: 7 - Related Data Home Medications Medication Instructions Recorded Confirmed Aspirin 81 mg PO DAILY 11/03/14 10/29/16 Furosemide [Lasix] 40 mg PO TID 11/03/14 10/29/16 Levothyroxine [Synthroid] 75 mcg PO QAM 11/03/14 10/29/16 Rifaximin [Xifaxan] 550 mg PO BID 11/03/14 10/29/16 Cholecalciferol (Vitamin D3) 50,000 unit PO SA 12/27/15 10/29/16 [Vitamin D3] Insulin DETEMIR [Levemir] 5 unit SQ HS 03/05/16 10/29/16 Insulin ASPART [NovoLOG] 0 unit SQ TIDAC 04/18/16 10/29/16 Cholestyramine 4 gm PO DAILY 06/27/16 10/29/16 Albuterol Sulfate [Albuterol 2 puff IH Q6H PRN 10/29/16 10/29/16 Inhaler] Heparin 5,000 unit SQ Q8HR 10/29/16 10/29/16 Loperamide [Imodium] 2 mg PO QID PRN 10/29/16 10/29/16 Loratadine [Claritin] 10 mg PO DAILY 10/29/16 10/29/16 MethylPREDNISolone 4 mg PO PER PKG DI 10/29/16 10/29/16 [MethylPREDNISolone Dose Pack] Metoprolol [Lopressor] 12.5 mg PO BID 10/29/16 10/29/16 Ondansetron ODT [Zofran ODT] 4 mg SL Q8H PRN 10/29/16 10/29/16 OxyCODONE Immed Rel [Roxicodone 5 5 mg PO Q6HR PRN 10/29/16 10/29/16 MG] Polyvinyl Alcohol [Artificial 1 drop BOTH EYES Q4H PRN 10/29/16 10/29/16 Tears] Sertraline [Zoloft] 50 mg PO DAILY 10/29/16 10/29/16 Sodium Bicarbonate 1,300 mg PO TID 10/29/16 10/29/16 Ursodiol [Lo Forte] 500 mg PO BID 10/29/16 10/29/16 Allergies Allergy/AdvReac Type Severity Reaction Status Date / Time apixaban [From Eliquis] Allergy Redness of Verified 10/06/16 20:22 Skin Buspirone [From BuSpar] Allergy Headache Verified 10/06/16 20:22 codeine Allergy Headache Verified 10/06/16 20:22 lactulose Allergy Itching Verified 10/06/16 20:22 rivaroxaban [From Xarelto] Allergy Rash Verified 10/06/16 20:22 Sulfa (Sulfonamide Allergy Rash Verified 10/06/16 20:22 Antibiotics) sulfamethoxazole Allergy Headache Verified 10/06/16 20:22 Warfarin [From Coumadin] Allergy Rash Verified 10/06/16 20:22 Constitutional: Denies: fever, chills, weakness, weight change Eyes: Denies: eye pain, eye discharge, vision change ENT ED: Denies: ear pain, throat pain, dental pain, hearing loss, epistaxis, congestion, dysphagia Cardiovascular: Denies: chest pain, palpitations, dyspnea on exertion, edema, syncope Respiratory: Denies: cough, dyspnea, wheezes, hemoptysis, stridor Gastrointestinal: Reports: other (abdominal swelling). Denies: abdominal pain, nausea, vomiting, diarrhea, constipation, hematemesis, melena, hematochezia Genitourinary: Denies: dysuria, frequency, hematuria, discharge Musculoskeletal: Denies: back pain, neck pain, arthralgia, myalgia Integumentary: Denies: rash, abrasion, lesions Neurological: Denies: headache, weakness, numbness, paresthesias, confusion, abnormal gait, vertigo Psychiatric: Denies: anxiety, depression, suicidal thoughts, homicidal thoughts , auditory hallucinations, visual hallucinations Endocrine: Denies: fatigue Hematological/Lymphatic: Denies: easy bleeding, easy bruising Allergic/Immunologic: Denies: facial swelling, urticaria Past Medical History - Past Medical History Medical history: Reports: asthma, atrial fibrillation, cirrhosis, CHF, DVT, diabetes, GERD, hyperlipidemia, hypertension, liver disease, renal disease, thyroid disease, other Surgical history: Reports: breast surgery, cholecystectomy, hysterectomy, orthopedic, other, pacemaker/AICD, other Psychiatric history: Reports: anxiety [employer] [place]STATE [place] history: Reports: no [employer] [place] [place] history - Social History Smoking Status: Former smoker Smokeless Tobacco Status: No Alcohol use: Reports: none Drug use: Reports: none Physical Exam - General Limitations: no limitations General appearance: alert, in no apparent distress, obese - Head Head exam: atraumatic, normocephalic, normal inspection - Eye Eye exam: Present: normal appearance, PERRL, EOMI - Expanded Eye Exam Pupils: Left: reactive - ENT ENT exam: normal exam, normal oropharynx, mucous membranes moist - Expanded ENT Exam External ear exam: Present: normal external inspection Mouth exam: Present: normal external inspection Teeth exam: Present: normal inspection Throat exam: Present: normal inspection - Neck Neck exam: Present: normal inspection, full ROM, trachea midline - Chest Chest inspection: Present: normal inspection, symmetric chest wall rise - Respiratory Respiratory exam: Present: normal lung sounds bilaterally - Cardiovascular Cardiovascular exam: Present: regular rate, normal rhythm, normal heart sounds - Abdominal Exam Abdominal exam: Present: soft, Non-Tender, distention, normal bowel sounds, organomegaly (liver). Absent: tenderness, guarding, rebound, rigidity, Candelario' s sign, Rovsing's sign, tenderness at McBurney's Point, mass, pulsatile mass - Extremities Exam Extremities exam: Present: normal inspection, full ROM. Absent: tenderness, pedal edema - Expanded Upper Extremity Exam Shoulder exam: Present: normal inspection, full ROM Arm exam: Present: normal inspection, full ROM Elbow exam: Present: normal inspection, full ROM Forearm/Wrist exam: Present: normal inspection, full ROM Hand exam: Present: normal inspection, full ROM Vascular exam: Normal: capillary refill, radial pulse - Expanded Lower Extremity Exam Hip/Pelvis exam: Present: normal inspection, full ROM Upper leg exam: Present: normal inspection, full ROM Knee exam: Present: normal inspection, full ROM Lower leg exam: Present: normal inspection, full ROM Ankle exam: Present: normal inspection, full ROM Foot/toe exam: Present: normal inspection, full ROM Neurovascular/Tendon exam: Absent: motor deficit, sensory deficit, tendon deficit - Back Exam Back exam: Present: normal inspection, full ROM. Absent: tenderness - Neurological Exam Neurological exam: Present: alert, oriented X3 - Expanded Neurological Exam Patient oriented to: Present: person, place, time Coma Scale Eye Opening: Spontaneous Coma Scale Motor Response: Obeys Commands Coma Scale Verbal Response: Oriented Coma Scale Total: 15 - Psychiatric Psychiatric exam: Present: normal affect, normal mood - Skin Skin exam: Present: warm, dry, intact, normal color Course Course Narrative: we will do labs and admit to medicine for paracentesis. Patients vital are stable. - Reevaluation(s) Reevaluation #1: updated patient on admission and she is agreeable to plan. Dat will be conslted for PICC line to obtain an IV access Time: 16:55 - Consultations Consultation #1: dicsussed case with Dr. Abad and she accepts patient to medicine service Time: 16:55 Vital Signs Temperature 97.1 F L 10/29/16 16:06 Pulse Rate 63 10/29/16 16:06 Respiratory Rate 18 10/29/16 16:06 Blood Pressure 123/61 10/29/16 16:06 O2 Sat by Pulse Oximetry 97 10/29/16 16:06 Temperature 97.1 F L 10/29/16 16:06 Pulse Rate 65 10/29/16 16:11 Respiratory Rate 18 10/29/16 16:11 Blood Pressure 122/71 10/29/16 16:11 O2 Sat by Pulse Oximetry 97 10/29/16 16:11 Oxygen Delivery Oxygen Delivery Room Air
--- NOTE | 2016-10-29 17:45 | Internal Med History&Physical ---
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 she has had multiple paracentesis in the past. was sent from dr. Oates's office today. will continue the diuretics(lasix and spironolactone) and arrange for therapeutic paracentesis by IR tomm. may benefit from pleurx catheter, discuss with GI and IR. She also had EGD on 06/27/2016 Surgical Pathology Report 06/27/2016: stomach biopsy: chronic gastritis with focal intestinal metaplasia She has grade 1 esophageal varices. 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 she is on cholestyramine and ursodiol, will continue. Qualifiers: Hepatic cirrhosis type: unspecified hepatic cirrhosis Ascites presence: with ascites Qualified Code(s): K74.60 - Unspecified cirrhosis of liver (2) Ascites Current visit: Yes Status: Acute 2/2 cirrhosis and portal HTN. will continue spironolacone and will start IV lasix. IR for therapeutic paracentesis tomm, INR is stable. consider option of pleurx catheter with GI and IR. Qualifiers: Ascites type: other type Qualified Code(s): R18.8 - Other ascites (3) DM2 (diabetes mellitus, type 2) Current visit: No Status: Chronic Qualifiers: Diabetes mellitus complication status: with kidney complications Diabetes mellitus complication detail: with chronic kidney disease Diabetes mellitus assisted insulin use: without assisted use Chronic kidney disease stage: stage 3 (moderate) Qualified Code(s): E11.22 - Type 2 diabetes mellitus with diabetic chronic kidney disease; N18.3 - Chronic kidney disease, stage 3 ( moderate) (4) Essential hypertension Current visit: No Status: Chronic (5) Mixed hyperlipidemia Current visit: No Status: Chronic (6) Acquired hypothyroidism Current visit: No Status: Chronic Internal Medicine - H&P: HPI Chief complaint: abdominal pain Admitted From: Home Plans for Post Hospital Care: Home History of present illness: Ms. Diego is a 81 year with PMH of cirrhosis was sent from Dr. Bangura office for admission for a paracentseis. Patient was seen in his office for routine followup for her cirrhotic liver disease and she appears to be fluid overloaded. Dat states that she feels abdominal fullness and has mild shortness of breath. Dat denies fevers or nausea or vomitting. Dat does not display any signs of sepsis at this time. Dat states the last time she had a paracentesis was a few months ago without complcations. she denies any other complains at this time. Past Med Surg Social Fam HX - Past Medical History Medical history: asthma, atrial fibrillation, cirrhosis, CHF, DVT, diabetes, GERD, hyperlipidemia, hypertension, liver disease, renal disease, thyroid disease, other Psychiatric history: anxiety - Past Surgical History Surgical History: breast surgery, cholecystectomy, hysterectomy, orthopedic, other, pacemaker/AICD, other - Social History Smoking Status: Former smoker Smokeless Tobacco Status: No Alcohol use: none Drug use: none - Family History Mother Living Status: Hx Family Cardiac Disorders: No Hx Family Respiratory Disorders: Yes Hx Family Cancer: Yes (unknown) Hx Family GI Disorders: Yes Hx Family Endocrine Disorder: Yes Hx Family Neuromuscular Disorders: No Hx Family Neurologic Disorders: No Hx Family HEENT Disorders: No Hx Family Autoimmune Disorders: No Father Living Status: Hx Family Cardiac Disorders: Yes (unknown) Hx Family Endocrine Disorder: Yes (DM) Brother Hx Family Cardiac Disorders: Yes (htn) Hx Family Cancer: Yes (lung) Sister Living Status: Hx Family Cardiac Disorders: Yes (htn) Hx Family Cancer: Yes (breast) Hx Family Endocrine Disorder: Yes (dm) Paternal Grandmother Hx Family Cancer: Yes (breast) Daughter Hx Family Respiratory Disorders: Yes (copd) Son Hx Family Cardiac Disorders: Yes (chf) Hx Family Neuromuscular Disorders: Yes (gout) Internal Medicine - H&P: Meds Aspirin 81 mg PO DAILY 11/03/14 [History] Furosemide [Lasix] 40 mg PO TID 11/03/14 [History] Levothyroxine [Synthroid] 75 mcg PO QAM 11/03/14 [History] Rifaximin [Xifaxan] 550 mg PO BID 11/03/14 [History] Cholecalciferol (Vitamin D3) [Vitamin D3] 50,000 unit PO SA 12/27/15 [History] Insulin DETEMIR [Levemir] 5 unit SQ HS 03/05/16 [History] Insulin ASPART [NovoLOG] 0 unit SQ TIDAC 04/18/16 [History] Cholestyramine 4 gm PO DAILY 06/27/16 [History] Albuterol Sulfate [Albuterol Inhaler] 2 puff IH Q6H PRN 10/29/16 [History] Heparin 5,000 unit SQ Q8HR 10/29/16 [History] Loperamide [Imodium] 2 mg PO QID PRN 10/29/16 [History] Loratadine [Claritin] 10 mg PO DAILY 10/29/16 [History] MethylPREDNISolone [MethylPREDNISolone Dose Pack] 4 mg PO PER PKG DI 10/29/16 [ History] Metoprolol [Lopressor] 12.5 mg PO BID 10/29/16 [History] Ondansetron ODT [Zofran ODT] 4 mg SL Q8H PRN 10/29/16 [History] OxyCODONE Immed Rel [Roxicodone 5 MG] 5 mg PO Q6HR PRN 10/29/16 [History] Polyvinyl Alcohol [Artificial Tears] 1 drop BOTH EYES Q4H PRN 10/29/16 [History] Sertraline [Zoloft] 50 mg PO DAILY 10/29/16 [History] Sodium Bicarbonate 1,300 mg PO TID 10/29/16 [History] Ursodiol [Lo Forte] 500 mg PO BID 10/29/16 [History] Allergies apixaban [From Eliquis] Allergy (Verified 10/06/16 20:22) Redness of Skin Buspirone [From BuSpar] Allergy (Verified 10/06/16 20:22) Headache codeine Allergy (Verified 10/06/16 20:22) Headache lactulose Allergy (Verified 10/06/16 20:22) Itching rivaroxaban [From Xarelto] Allergy (Verified 10/06/16 20:22) Rash Sulfa (Sulfonamide Antibiotics) Allergy (Verified 10/06/16 20:22) Rash sulfamethoxazole Allergy (Verified 10/06/16 20:22) Headache Warfarin [From Coumadin] Allergy (Verified 10/06/16 20:22) Rash All Systems PM: A 10-system review of systems was performed and is negative for pertinent findings except as documented above in the HPI. - Constitutional Constitutional: as per HPI - EENT Eyes: as per HPI Ears: as per HPI Nose, mouth and throat: as per HPI - Breasts Breasts: as per HPI - Cardiovascular Cardiovascular ROS IM: as per HPI - Respiratory Respiratory: as per HPI - Gastrointestinal Gastrointestinal: as per HPI - Genitourinary Genitourinary: as per HPI Menstruation: as per HPI - Constitutional Vitals: Temp Pulse Resp BP Pulse Ox 97.1 F L 65 18 122/71 97 10/29/16 16:06 10/29/16 16:11 10/29/16 16:11 10/29/16 16:11 10/29/16 16:11 General appearance: Present: A&O X 3, no acute distress Exam: icterus+ neck-s upple chest- b/l clear, no added sounds CVS-s1 and s2, no mr//g abd-soft,distended, free fluid++, non tender, bs are present ext- b/l lower leg edema neuro- no focal defecits, alert and awake.
[2016-10-29] MEDS ORDERED: Naloxone 0.4 MG/ML INJ IVP PRN (17:57)
[2016-10-29] MEDS ORDERED: *HR* Dextrose 50 % in Water (Syg) 50 ML SYRINGE IVP PRN (18:24)
[2016-10-29] MEDS ORDERED: D5% in Water 1,000 ML IVC PRN (18:24)
[2016-10-29] MEDS ORDERED: Dextrose Gel 15 GM PO PRN ×2 (18:24)
[2016-10-29 19:12] LABS: Basophils % 0.1 %; Eosinophils % 0.2 %; Hematocrit 31.9 % (35.3-44.9); Hemoglobin 10.4 g/dL (11.5-15.4); Immature Granulocytes % 0.6 % (0-4); Immature Platelets 10.6 % (1.1-6.1); Lymphocytes # 1.4 K/mcL (0.6-4.6); Lymphocytes % 10.6 %; Mean Corpuscular HGB Conc 32.6 g/dL (31.6-35.5); Mean Corpuscular Hemoglobin 32.6 pg (28.0-33.3); Mean Platelet Volume 12.3 fL (9.4-12.4); Monocytes # 0.6 K/mcL (0.0-1.3); Monocytes % 4.6 %; Neutrophils # 11.1 K/mcL (1.6-8.9); Platelet Count 113 K/mcL (140-400); Red Blood Count 3.19 M/mcL (3.82-4.97); Red Cell Distribution Width 16.5 % (11.5-14.5); Segmented Neutrophils % 83.9 %
[2016-10-29 19:16] LABS: INR 1.4; Prothrombin Time 14.9 Seconds (9.4-12.1)
[2016-10-29 19:19] LABS: Activated Partial Thrombo Time 26.7 Seconds (26.0-36.0)
[2016-10-29 19:28] LABS: Alanine Aminotransferase 78 Units/L (0-55); Albumin 2.7 g/dL (3.5-5.0); Albumin/Globulin Ratio 0.9 (1.1-2.2); Alkaline Phosphatase 181 Units/L (38-126); Aspartate Amino Transferase 54 Units/L (5-34); BUN/Creatinine Ratio 46 (6-26); Bilirubin,Direct 1.8 mg/dL (0.0-0.5); Bilirubin,Indirect 1.7 mg/dL (0.0-1.2); Bilirubin,Total 3.5 mg/dL (0.2-1.2); Blood Urea Nitrogen 45 mg/dL (7-20); Calcium 8.5 mg/dL (8.6-10.8); Carbon Dioxide 25 mEq/L (19-29); Chloride 94 mEq/L (98-109); Globulin 3.1 g/dL (2.4-3.5); Glucose 138 mg/dL (70-99); Osmolality,Calculated 284 (280-300); Potassium 4.3 mEq/L (3.5-4.5); Sodium 130 mEq/L (136-145); Total Protein 5.8 g/dL (6.0-8.3); eGFR For African Americans > 60 (> 60); eGFR For Non-African Americans 55 (> 60)
[2016-10-29] MEDS ORDERED: Insulin DETEMIR 100 UNIT/ML X5UNITS SQ SCH (21:00)
[2016-10-29] MEDS ORDERED: Insulin LISPRO 300 UNITS/3 ML VIAL SQ SCH (21:00)
[2016-10-29] MEDS ORDERED: INSULIN DETEMIR 5 UNIT SQ SCH (21:00)
[2016-10-29] MEDS: (Rifaximin [Xifaxan] 550 MG) PO SCH (22:06)
[2016-10-29] MEDS: (Ursodiol [Urso Forte] 500 MG) PO SCH (22:06)
[2016-10-29] MEDS: Furosemide 40 MG/4 ML VIAL IVP SCH (22:07)
[2016-10-30] MEDS ORDERED: *HR* Heparin 5,000 UNIT/ML VIAL SQ SCH (06:00)
[2016-10-30] MEDS: *HR* OxyCODONE Immed Rel 5 MG TABLET PO PRN ×2 (06:18→11:02)
[2016-10-30 06:56] LABS: Basophils % 0.1 %; Eosinophils # 0.2 K/mcL (0.0-0.6); Eosinophils % 1.5 %; Hematocrit 29.3 % (35.3-44.9); Hemoglobin 9.3 g/dL (11.5-15.4); Immature Granulocytes % 0.5 % (0-4); Lymphocytes # 2.5 K/mcL (0.6-4.6); Lymphocytes % 17.6 %; Mean Corpuscular HGB Conc 31.7 g/dL (31.6-35.5); Mean Corpuscular Hemoglobin 31.8 pg (28.0-33.3); Mean Corpuscular Volume 100.3 fL (83.0-100.0); Mean Platelet Volume 12.9 fL (9.4-12.4); Monocytes # 0.8 K/mcL (0.0-1.3); Monocytes % 5.7 %; Neutrophils # 10.7 K/mcL (1.6-8.9); Platelet Count 104 K/mcL (140-400); Red Blood Count 2.92 M/mcL (3.82-4.97); Red Cell Distribution Width 16.5 % (11.5-14.5); Segmented Neutrophils % 74.6 %
[2016-10-30] MEDS: Insulin LISPRO 300 UNITS/3 ML VIAL SQ SCH ×2 (08:27→12:07)
[2016-10-30 08:28] LABS: BUN/Creatinine Ratio 48 (6-26); Blood Urea Nitrogen 43 mg/dL (7-20); Calcium 8.1 mg/dL (8.6-10.8); Carbon Dioxide 25 mEq/L (19-29); Chloride 95 mEq/L (98-109); Glucose 116 mg/dL (70-99); Osmolality,Calculated 278 (280-300); Potassium 4.2 mEq/L (3.5-4.5); Sodium 128 mEq/L (136-145); eGFR For African Americans > 60 (> 60); eGFR For Non-African Americans > 60 (> 60)
[2016-10-30] MEDS: (Ursodiol [Urso Forte] 500 MG) PO SCH (08:36)
[2016-10-30] MEDS: Furosemide 40 MG/4 ML VIAL IVP SCH (08:36)
[2016-10-30] MEDS: (Rifaximin [Xifaxan] 550 MG) PO SCH (08:36)
[2016-10-30] MEDS ORDERED: Cholestyramine 4 GM POWD.PACK PO SCH (09:00)
[2016-10-30] MEDS ORDERED: Aspirin 81 MG TAB.CHEW PO SCH (09:00)
--- NOTE | 2016-10-30 10:20 | IR Procedure Note ---
Date of procedure: 10/30/16 Consent Obtained: Written consent Timeout: Correct patient and procedure verified, Correct site verified, Time out performed, Skin prep completed Indications: ascites Procedure Performed: paracentesis Site/Technique: abdomen Results/Findings: large ascites Estimated blood loss (cc): 0 Complications: None; Tolerated procedure well Post Procedure Treatment Plan: recovery
[2016-10-30 15:59] VITALS: BP 108/69
--- NOTE | 2016-10-30 17:02 | Discharge Summary ---
Date of Encounter: 10/30/16 Time of Encounter: 15:30 - Discharge Diagnosis (1) Ascites Priority: Primary Status: Acute Qualifiers: Ascites type: other type Qualified Code(s): R18.8 - Other ascites (2) Liver cirrhosis Priority: Secondary Status: Acute Qualifiers: Hepatic cirrhosis type: unspecified hepatic cirrhosis Ascites presence: with ascites Qualified Code(s): K74.60 - Unspecified cirrhosis of liver (3) DM2 (diabetes mellitus, type 2) Priority: Secondary Status: Chronic Qualifiers: Diabetes mellitus complication status: with kidney complications Diabetes mellitus complication detail: with chronic kidney disease Diabetes mellitus longterm insulin use: without long winder tender use Chronic kidney disease stage: stage 3 (moderate) Qualified Code(s): E11.22 - Type 2 diabetes mellitus with diabetic chronic kidney disease; N18.3 - Chronic kidney disease, stage 3 ( moderate) (4) Chronic hyponatremia Priority: Secondary Status: Acute (5) Essential hypertension Priority: Secondary Status: Chronic - Discharge Medications Home Medications: Aspirin 81 mg PO DAILY 11/03/14 [History] Furosemide [Lasix] 40 mg PO TID 11/03/14 [History] Levothyroxine [Synthroid] 75 mcg PO QAM 11/03/14 [History] Rifaximin [Xifaxan] 550 mg PO BID 11/03/14 [History] Cholecalciferol (Vitamin D3) [Vitamin D3] 50,000 unit PO SA 12/27/15 [History] Insulin DETEMIR [Levemir] 5 unit SQ HS 03/05/16 [History] Insulin ASPART [NovoLOG] 0 unit SQ TIDAC 04/18/16 [History] Cholestyramine 4 gm PO DAILY 06/27/16 [History] Albuterol Sulfate [Albuterol Inhaler] 2 puff IH Q6H PRN 10/29/16 [History] Loperamide [Imodium] 2 mg PO QID PRN 10/29/16 [History] Loratadine [Claritin] 10 mg PO DAILY 10/29/16 [History] MethylPREDNISolone [MethylPREDNISolone Dose Pack] 4 mg PO PER PKG DI 10/29/16 [ History] Metoprolol [Lopressor] 12.5 mg PO BID 10/29/16 [History] Ondansetron ODT [Zofran ODT] 4 mg SL Q8H PRN 10/29/16 [History] OxyCODONE Immed Rel [Roxicodone 5 MG] 5 mg PO Q6HR PRN 10/29/16 [History] Polyvinyl Alcohol [Artificial Tears] 1 drop BOTH EYES Q4H PRN 10/29/16 [History] Sertraline [Zoloft] 50 mg PO DAILY 10/29/16 [History] Sodium Bicarbonate 1,300 mg PO TID 10/29/16 [History] Ursodiol [Lo Forte] 500 mg PO BID 10/29/16 [History] Allergies/Adverse Reactions: Allergies apixaban [From Eliquis] Allergy (Verified 10/06/16 20:22) Redness of Skin Buspirone [From BuSpar] Allergy (Verified 10/06/16 20:22) Headache codeine Allergy (Verified 10/06/16 20:22) Headache lactulose Allergy (Verified 10/06/16 20:22) Itching rivaroxaban [From Xarelto] Allergy (Verified 10/06/16 20:22) Rash Sulfa (Sulfonamide Antibiotics) Allergy (Verified 10/06/16 20:22) Rash sulfamethoxazole Allergy (Verified 10/06/16 20:22) Headache Warfarin [From Coumadin] Allergy (Verified 10/06/16 20:22) Rash Procedures/tests Complete & Pending: Procedures Performed prior 72 hours Category Date Time Status IR paracentesis ultrasound [IR] Routine IR 10/30/16 Completed Date of admission: 10/29/16 16:58 Primary care physician: Armida Torres, Consults: 10/29/16 18:00 Consult to Interventional Radiology [CONS] Routine Consulting Provider: Radiology Interventional Cols Reason for Consult: please evaluate for IR guided therapeutic paracentesis. Call Completed: No 10/30/16 15:33 Consult to Make Ready Worker [CONS] Routine Reason for SW Consult: [facility] - Patient Status Disposition: Transfer SNF Condition: Fair Overall status at discharge: patient is back to baseline - Discharge Instructions Follow Up With: Armida Torres MD [Primary Care Provider] - - Diet and Activity Activity: as per physical therapy Diet: regular diet Hospital course: Ms. Diego is a 81 year with PMH of cirrhosis of liver, HTN, HLD, DM2, severe ascities who gets Paracentesis on PRN basis, currently on hospice care at [facility] was sent from Dr. Bangura office for admission for a paracentseis.Pt was admitted here and scheduled for Paracentesis this morning. She had paracentesis done today , and got removed 6.1 lit fluid. Not pt is resting comfortably. Still looks very lethargic and weak. She is tolerating PO intake OK, No nausea / vomiting noticed. So will d/c her back to [facility] under hospice care. - Time Spent with Patient Total time spent providing and/or coordinating discharge services: - Constitutional Vitals: Temp Pulse Resp BP Pulse Ox 97.5 F L 62 15 108/69 97 10/30/16 15:58 10/30/16 15:58 10/30/16 15:58 10/30/16 15:58 10/30/16 15:58 General appearance: Present: A&O X 3, no acute distress - Head Head exam: Present: atraumatic, normal inspection - Respiratory Respiratory exam: Present: decreased breath sounds. Absent: respiratory distress, rhonchi, wheezes - Cardiovascular Cardiovascular exam: Present: RRR, +S1, +S2. Absent: systolic murmur - GI/Abdominal GI/Abdominal exam: Present: distended, normal bowel sounds, soft. Absent: rebound, rigid - Extremities Exam Extremities exam: Present: pedal edema. Absent: calf tenderness, tenderness - Psychiatric Psychiatric exam: Present: depressed
--- NOTE | 2016-10-30 17:08 | Physician Discharge Referral ---
ExtendedCare Referral Info Transfer To: ECF - under hospice care Provider in Charge after Transfer: Hand Marker Institutional Level of Care: Skilled - Diagnosis (1) Ascites Status: Acute (2) Liver cirrhosis Status: Acute (3) DM2 (diabetes mellitus, type 2) Status: Chronic (4) Chronic hyponatremia Status: Acute (5) Essential hypertension Status: Chronic - Transfer Medications Home Medications: Aspirin 81 mg PO DAILY 11/03/14 [History] Furosemide [Lasix] 40 mg PO TID 11/03/14 [History] Levothyroxine [Synthroid] 75 mcg PO QAM 11/03/14 [History] Rifaximin [Xifaxan] 550 mg PO BID 11/03/14 [History] Cholecalciferol (Vitamin D3) [Vitamin D3] 50,000 unit PO SA 12/27/15 [History] Insulin DETEMIR [Levemir] 5 unit SQ HS 03/05/16 [History] Insulin ASPART [NovoLOG] 0 unit SQ TIDAC 04/18/16 [History] Cholestyramine 4 gm PO DAILY 06/27/16 [History] Albuterol Sulfate [Albuterol Inhaler] 2 puff IH Q6H PRN 10/29/16 [History] Loperamide [Imodium] 2 mg PO QID PRN 10/29/16 [History] Loratadine [Claritin] 10 mg PO DAILY 10/29/16 [History] MethylPREDNISolone [MethylPREDNISolone Dose Pack] 4 mg PO PER PKG DI 10/29/16 [ History] Metoprolol [Lopressor] 12.5 mg PO BID 10/29/16 [History] Ondansetron ODT [Zofran ODT] 4 mg SL Q8H PRN 10/29/16 [History] OxyCODONE Immed Rel [Roxicodone 5 MG] 5 mg PO Q6HR PRN 10/29/16 [History] Polyvinyl Alcohol [Artificial Tears] 1 drop BOTH EYES Q4H PRN 10/29/16 [History] Sertraline [Zoloft] 50 mg PO DAILY 10/29/16 [History] Sodium Bicarbonate 1,300 mg PO TID 10/29/16 [History] Ursodiol [Lo Forte] 500 mg PO BID 10/29/16 [History] Allergies/Adverse Reactions: Allergies apixaban [From Eliquis] Allergy (Verified 10/06/16 20:22) Redness of Skin Buspirone [From BuSpar] Allergy (Verified 10/06/16 20:22) Headache codeine Allergy (Verified 10/06/16 20:22) Headache lactulose Allergy (Verified 10/06/16 20:22) Itching rivaroxaban [From Xarelto] Allergy (Verified 10/06/16 20:22) Rash Sulfa (Sulfonamide Antibiotics) Allergy (Verified 10/06/16 20:22) Rash sulfamethoxazole Allergy (Verified 10/06/16 20:22) Headache Warfarin [From Coumadin] Allergy (Verified 10/06/16 20:22) Rash - Respiratory Orders Smoking Cessation: Smoking cessation has been advised. For more information, call the [place] Tobacco Quit Line at 4-326-OBDFNOW. CERTIFICATION: I certify that the transfer of the above named patient to an Extended Care Facility is necessary for the continuing treatment of the diagnosis listed. The above information is true and accurate reflection of patient's current condition. Confidential - Redisclosure prohibited without a patient's written consent.
== END 2016-10-30 18:39 ==
LOC: EMEROO 16:06 → 3BNU 16:06
PROVIDERS: ADMIT Nurse Practitioner Family; ATTEND Nurse Practitioner Family